=== PATIENT | male | born 1950 | race Caucasian/White ===

== ENCOUNTER → 2017-04-24 | Outpatient (CLI) | payer MEDICARE, OTHER ==
[~2017-04-24] MED LIST: ACYC800T57 PO; AMPI250C11 PO; CATHETER FLUSH 10 ML SYR IV PRN; PRD20T PO; SULF1TAB38 PO
[2017-04-24 07:36] LABS: BASOPHILS % (AUTO) 0 % (0-10); EOSINOPHILS # (AUTO) 0.1 10^3/uL (0.0-0.3); EOSINOPHILS % (AUTO) 1 % (0-10); LYMPHOCYTES % (AUTO) 46 % (12-44); MEAN CORPUSCULAR HEMOGLOBIN 31 PG (25-34); MEAN CORPUSCULAR HGB CONC 33 G/DL (32-36); MEAN CORPUSCULAR VOLUME 92 FL (80-99); MEAN PLATELET VOLUME 9.3 FL (7.4-10.4); MONOCYTES # (AUTO) 0.9 X 10^3 (0.0-1.0); MONOCYTES % (AUTO) 10 % (0-12); NEUTROPHILS # (AUTO) 3.7 X 10^3 (1.8-7.8); NEUTROPHILS % (AUTO) 42 % (42-75); PLATELET COUNT 274 10^3/uL (130-400); RED BLOOD COUNT 4.98 10^6/uL (4.35-5.85); RED CELL DISTRIBUTION WIDTH 12.9 % (10.0-14.5); WHITE BLOOD COUNT 8.7 10^3/uL (4.3-11.0)
[2017-04-24 07:54] LABS: ANION GAP 9 MMOL/L (5-14); BLOOD UREA NITROGEN 13 MG/DL (7-18); BUN/CREATININE RATIO 14; CALCIUM 9.2 MG/DL (8.5-10.1); CARBON DIOXIDE 27 MMOL/L (21-32); CHLORIDE 104 MMOL/L (98-107); CHOLESTEROL 133 MG/DL (< 200); CREATININE SERUM 0.91 MG/DL (0.60-1.30); DIRECT LDL 75 MG/DL (1-129); GFR ESTIMATED > 60; GLUCOSE 102 MG/DL (70-105); MAGNESIUM 2.1 MG/DL (1.8-2.4); POTASSIUM 3.9 MMOL/L (3.6-5.0); SODIUM 140 MMOL/L (135-145); TRIGLYCERIDES 62 MG/DL (<150); VLDL CHOLESTEROL 12 MG/DL (5-40)
[2017-04-24 09:20] VITALS: BP 153/65
[2017-04-24 09:29] VITALS: BP 195/73
[2017-04-24 09:32] VITALS: BP 168/67
--- NOTE | 2017-04-26 17:33 | STRESS TEST ---
DATE OF SERVICE: 04/24/2017 Resting and post-exercise technetium-99M Tetrofosmin SPECT CT imaging ORDERING PHYSICIAN: Dr. Roberts PRIMARY CARE PHYSICIAN: Dr. Saini. CLINICAL DIAGNOSES: Coronary artery disease. Baseline images were carried out after injection of 10.97 mCi of technetium-99M Tetrofosmin. Subsequently exercise was carried out on a treadmill. Nain protocol was employed. Heart rate response to exercise was normal. However, there appeared to be a relatively brief episode of paroxysmal atrial fibrillation with exercise which then returned to sinus rhythm in the recovery phase. Also there were isolated premature ventricular contractions throughout the study. There were four beat runs of wide complex tachycardia during atrial fibrillation. The test was stopped on account of fatigue. The patient had attained Blood pressure response to exercise was hypertensive. Test was stopped on of fatigue. CLINICAL DIAGNOSIS: Review of images at rest and following stress indicate a small transient basal inferior perfusion defect. Gated images show normal global left ventricular systolic function with normal regional wall motion. Left ventricular ejection fraction is calculated to be 54%. Left ventricular end diastolic volume is 115 mL. TID is absent (0.94). CONCLUSIONS: 1. The study is indicative of a small to moderate basal inferior ischemia. 2. Paroxysmal atrial fibrillation during exercise. 3. Brief runs of nonsustained wide complex tachycardia of up to 4 beats in length during atrial fibrillation. 4. Normal global left ventricular systolic function with ejection fraction of 54%. Job ID: [id number] DocumentID: [id number] Dictated Date: 04/25/2017 09:00:45 Detail Technician Date: 04/25/2017 14:02:20 Dictated By: JUAREZ ROBERTS MD, MA, FACP, FACC,
== END ==
LOC: CARD 07:21
PROVIDERS: ATTEND Internal Medicine Cardiovascular Disease
DX: I25.10 Atherosclerotic heart disease of native coronary artery without angina pectoris (principal); I25.5 Ischemic cardiomyopathy; I65.23 Occlusion and stenosis of bilateral carotid arteries; I10 Essential (primary) hypertension; Z86.2 Personal history of diseases of the blood and blood-forming organs and certain disorders involving the immune mechanism
CPT/HCPCS: 36415; 78452; 80048; 80061; 83735; 85025; 93017

== ENCOUNTER 2017-09-12 05:35 | Outpatient (CLI) | payer MEDICARE, OTHER ==
[~2017-09-12] VITALS: Ht 182.9 cm; Wt 94.3 kg
[~2017-09-12 05:35] MED LIST changes: -CATHETER FLUSH 10 ML SYR IV PRN
[2017-09-12] MEDS ORDERED: ATOR40TA PO (15:27)
[2017-09-12] MEDS ORDERED: ASPI-586 PO (15:27)
[2017-09-12] MEDS ORDERED: CLOP75TA28 PO (15:27)
[2017-09-12] MEDS ORDERED: SUCR1TAB PO (15:27)
[2017-09-12] MEDS ORDERED: PANT40TA3 PO (15:27)
[2017-09-12] MEDS ORDERED: AMLO10TA2 PO (15:27)
== END 2017-09-12 15:29 ==
LOC: PREOP 05:35
PROVIDERS: ATTEND Surgery
DX: Z01.818 Encounter for other preprocedural examination (principal); R13.10 Dysphagia, unspecified

== ENCOUNTER → 2017-09-17 | Outpatient (CLI) | payer MEDICARE, OTHER ==
[~2017-09-17] MED LIST changes: +AMLO10TA2 PO; +ASPI-586 PO; +ATOR40TA PO; +CLOP75TA28 PO; +IOHEXOL 350 MG/ML 100 ML (OMNIPAQUE 350) VIAL IV ONE; +NS 250 ML (IVPB) BAG IV ONE; +PANT40TA3 PO; +RECEIVED CONTRAST (Hold Metformin) IV SCH; +SUCR1TAB PO
--- NOTE | 2017-09-17 17:02 | Diagnostic Imaging Report ---
PROCEDURE: CT chest and abdomen with and without contrast TECHNIQUE: Multiple axial CT images through the thorax and abdomen were obtained with and without intravenous contrast. INDICATION: Esophageal mass seen on EGD. COMPARISON: None available. CT CHEST FINDINGS: No supraclavicular or axillary lymphadenopathy. The thyroid is normal. No mediastinal, hilar or juxtaphrenic lymphadenopathy. The heart is mildly enlarged and status post CABG. There is circumferential wall thickening of the distal one third of the esophagus at the level of the GE junction. No pleural effusion or pneumothorax. No endoluminal nodule in the trachea. There is a subpleural rectangular 6 mm nodule in the right upper lobe. No additional pulmonary nodules. No pulmonary mass or consolidation. No concerning focal osseous lesions. Median sternotomy. IMPRESSION: 1. Abnormal circumferential wall thickening of the distal esophagus at the GE junction should correspond to patient's reported esophageal mass. 2. No mediastinal lymphadenopathy or evidence of metastases in the chest. 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 No additional hepatic lesions. The gallbladder and bile ducts are normal. The spleen, pancreas and adrenals are normal. Kidneys enhance normally without mass lesion or obstruction. Distal esophageal thickening extends to the GE junction. Remainder of the stomach does not have wall thickening. No dilated loops of small bowel. No pericolonic inflammatory changes. Appendix is normal. No abdominal lymphadenopathy. No concerning focal osseous lesions. IMPRESSION: 1. No evidence of metastatic disease in the abdomen. Dictated by: Dictated on workstation # [id number]
== END ==
LOC: RAD 14:32
PROVIDERS: ATTEND Surgery
DX: K22.8 Other specified diseases of esophagus (principal)
CPT/HCPCS: 71270; 74170

== ENCOUNTER → 2017-09-30 | Outpatient (CLI) | payer MEDICARE, OTHER ==
[~2017-09-30] MED LIST changes: -IOHEXOL 350 MG/ML 100 ML (OMNIPAQUE 350) VIAL IV ONE; -NS 250 ML (IVPB) BAG IV ONE; -RECEIVED CONTRAST (Hold Metformin) IV SCH
--- NOTE | 2017-09-30 13:29 | Diagnostic Imaging Report ---
INDICATION: Esophageal carcinoma. TECHNIQUE: Patient blood glucose level at the time of injection is 92 mg/dL. The patient was administered 12.1 mCi of F-18 FDG intravenously, administered in the right antecubital vein. PET imaging was performed from the top of the skull to the mid thighs. In addition, noncontrast CT imaging was performed for anatomic correlation and attenuation correction. COMPARISON: No prior PET/CT studies are available for comparison. Comparison is made with recent conventional CT performed on 09/17/2017. FINDINGS: There is symmetric uptake of activity throughout the brain. There are several foci of hypermetabolism involving bilateral mandibular and maxillary regions, perhaps owing to odontogenic disease. Soft tissues of the neck are unremarkable. Intense uptake is identified in the region of the distal esophagus and GE junction, corresponding with the CT abnormality. SUV max is approximately 14. No periesophageal hypermetabolism is seen. The remainder of the mediastinum and luciana are unremarkable. No pulmonary parenchymal hypermetabolism is identified. Physiologic activity within the liver and spleen is seen. There is physiologic activity within bilateral kidneys and urinary tracts. No retroperitoneal or mesenteric lymphadenopathy or hypermetabolism is seen. The pelvis is unremarkable. Physiologic activity within the urinary bladder is noted. IMPRESSION: Intense hypermetabolism in the distal esophagus extending into the GE junction and gastric cardia region, consistent with esophageal neoplasm. No definite findings to suggest metastatic disease are identified. Dictated by: Dictated on workstation # [id number]
== END ==
LOC: RAD 09:00
PROVIDERS: ATTEND Internal Medicine Hematology & Oncology
DX: C15.9 Malignant neoplasm of esophagus, unspecified (principal)

== ENCOUNTER 2017-10-15 05:34 | Outpatient (CLI) | payer MEDICARE, OTHER ==
[~2017-10-15] VITALS: Ht 180.3 cm; Wt 91.6 kg
== END 2017-10-15 11:01 ==
LOC: PREOP 05:34
PROVIDERS: ATTEND Surgery
DX: Z01.818 Encounter for other preprocedural examination (principal); C15.9 Malignant neoplasm of esophagus, unspecified

== ENCOUNTER → 2017-10-16 | Day surgery (SDC) | payer MEDICARE, OTHER ==
[~2017-10-16] VITALS: Ht 180.3 cm; Wt 91.6 kg
[~2017-10-16] MED LIST changes: +ACETAMINOPHEN 325 MG TABLET/CAPLET (TYLENOL) PO PRN; +CATHETER FLUSH 10 ML SYR IV PRN; +HYDROcodone/APAP 5 MG/325 MG (LORTAB) TAB PO ONE; +LACTATED RINGERS 1,000 ML IV PRN; +ONDANSETRON 4 MG/2 ML (SDV) Z0FRAN IVP PRN; +ceFAZolin 1 GM/NS 100 ML IVPB IV ONE; +ceFAZolin INJECTION 1,000 MG in NS (IVPB) 100 ML IV ONE; +morphine INJ 10 MG/ML 1ML (SYR OR VIAL) IVP PRN
--- OUTSIDE RECORDS SUMMARY | 2017-10-16 10:13 | XMS REPORT | Continuity of Care Document ---
Author Author [facility] Organization [facility] Address Unknown Phone Unavailable Care Team Providers Care Transportation Clerk Name Role Phone [employer] Unavailable Unavailable Problems Medications Allergies, Adverse Reactions, Alerts Immunizations Results Vital Signs Encounters Location Location Details Encounter Type Encounter Number Reason For Visit Attending Provider ADM Date DC Date Status Source [place] SERIES [id number] MUNIR DOUGLAS 10/15/[address] [facility] O MUNIR ENG 12/17/[address] [facility] Procedures Plan of Care Social History Assessment and Plan Family History Advance Directives Functional Status
--- OUTSIDE RECORDS SUMMARY | 2017-10-16 10:14 | XMS REPORT | Clinical Summary ---
Author Author [facility] Organization [facility] Address Unknown Phone Unavailable Care Team Providers Care Marine Structural Welder Name Role Phone Rodolfo Alvarado MD Unavailable Unavailable Sanam Roberts MD Unavailable Ramsey Reynolds MD PCP Rodolfo Alvarado MD 21 Unavailable Source Comments Some departments are not documenting in the electronic medical record. If you do not see the information that you expected, contact Release of Information in the Health Information Management department at [phone] for further assistance in locating additional records.[facility] Allergies Active Allergy Reactions Severity Noted Date Comments Meperidine UNKNOWN Low 10/15/2017 Current Medications Prescription Sig. Disp. Refills Start End Date Status Date amLODIPine (NORVASC) 10 09/02/19 Active mg tablet 18 atorvastatin (LIPITOR) 40 09/02/19 Active mg tablet 18 clopiDOGrel (PLAVIX) 75 09/02/19 Active mg tablet [address] 09/10/19 Active (PROTONIX) 40 mg tablet 18 ASPIRIN PO Take 81 mg by mouth. Active Active Problems Not on file Encounters Date Type Specialty Care Team Description 10/15/2017 Office Visit Oncology Chan Carranza MD 10/13/2017 Ancillary Radiology Outpatient, Radiologist Diagnosis unknown Orders 10/10/2017 Telephone Oncology Chan Carranza MD Navigation Assessment 09/30/2017 Hospital Radiology Encounter 09/17/2017 Hospital Radiology Encounter from Last 3 Months Family History Medical History Relation Name Comments Unknown to Patient Brother Unknown to Patient Father Unknown to Patient Maternal Aunt Unknown to Patient Maternal Grandfather Unknown to Patient Maternal Grandmother Unknown to Patient Maternal Uncle Unknown to Patient Mother Unknown to Patient Other Unknown to Patient Paternal Aunt Unknown to Patient Paternal Grandfather Unknown to Patient Paternal Grandmother Unknown to Patient Paternal Uncle Unknown to Patient Sister Relation Name Status Comments Brother Father Maternal Aunt Maternal Grandfather Maternal Grandmother Maternal Uncle Mother Other Paternal Aunt Paternal Grandfather Paternal Grandmother Paternal Uncle Sister Social History Tobacco Use Types Packs/Day Years Used Date Former Smoker Cigarettes 2 15 Quit: 10/03/1983 Smokeless Tobacco: Never Used Alcohol Use Drinks/Week oz/Week Comments No Sex Assigned at Date Recorded Not on file Last Filed Vital Signs Vital Sign Reading Time Taken Blood Pressure 125/74 10/15/2017 3:14 PM CDT Pulse 56 10/15/2017 3:14 PM CDT Temperature 36.9 C (98.4 F) 10/15/2017 3:14 PM CDT Respiratory Rate 14 10/15/2017 3:14 PM CDT Oxygen Saturation - - Inhaled Oxygen - - Concentration Weight 91.9 kg (202 lb 9.6 oz) 10/15/2017 3:14 PM CDT Height - - Body Mass Index - - Plan of Treatment Health Maintenance Due Date Last Done Comments HEPATITIS C SCREENING 1950 PHYSICAL (COMPREHENSIVE) 1957 EXAM PERTUSSIS VACCINE 1961 TETANUS VACCINE 10/31/1967 COLORECTAL CANCER 2000 SCREENING SHINGLES VACCINE 2010 ABDOMINAL AORTIC ANEURYSM 10/31/2015 SCREENING PREVNAR/PNEUMOVAX (#1) 10/31/2015 INFLUENZA VACCINE 05/04/2018 Results * NM PET/CT EXTERNAL IMAGING (09/30/2017) Narrative This order has been auto finalized and does not contain a result. * CT CHEST EXTERNAL IMAGING (09/17/2017) Narrative This order has been auto finalized and does not contain a result. from Last 3 Months
--- OUTSIDE RECORDS SUMMARY | 2017-10-16 10:14 | XMS REPORT | Encounter Summary ---
Author Author [facility] Organization [facility] Address Unknown Phone Unavailable Care Team Providers Care Acoustical Logging Engineer Name Role Phone PCP Unavailable Encounter Details Date Type Department Care Team Description 09/30/2017 Hospital [facility] Hospital Radiology [address] [place] [address] Social History Tobacco Use Types Packs/Day Years Used Date Never Assessed Sex Assigned at Date Recorded Not on file as of this encounter Medications at Time of Discharge Medication Sig. Disp. Refills Start Date End Date amLODIPine (NORVASC) 10 09/02/2017 mg tablet atorvastatin (LIPITOR) 40 09/02/2017 mg tablet clopiDOGrel (PLAVIX) 75 09/02/[address] 09/10/2017 (PROTONIX) 40 mg tablet as of this encounter Plan of Treatment Not on fileas of this encounter Results * NM PET/CT EXTERNAL IMAGING (09/30/2017) Narrative This order has been auto finalized and does not contain a result. in this encounter Visit Diagnoses Diagnosis Diagnosis unknown Other unknown and unspecified cause of morbidity or mortality
--- OUTSIDE RECORDS SUMMARY | 2017-10-16 10:14 | XMS REPORT | Encounter Summary ---
Author Author [facility] Organization [facility] Address Unknown Phone Unavailable Care Team Providers Care Hospice Executive Director Name Role Phone Rodolfo Alvarado MD Unavailable Unavailable Sanam Roberts MD Unavailable Ramsey Reynolds MD PCP Rodolfo Alvarado MD 21 Unavailable Reason for Visit * Reason Comments Navigation Assessment Encounter Details Date Type Department Care Team Description 10/10/2017 Telephone [facility] Chan Carranza MD Navigation Assessment [facility] - Exam [address] [place] [address] [place] [address] [phone] Social History Tobacco Use Types Packs/Day Years Used Date Never Assessed Sex Assigned at Date Recorded Not on file as of this encounter Miscellaneous Notes * Telephone Encounter - Caron Mars RN - 10/10/2017 8:13 AM SUPERVISOR QUALITY CONTROL Formatting of this note may be different from the original. Navigation Intake Assessment Document Patient Name: Ever Johns : 1950 Insurance: Medicare Appointment Info: Future Appointments Date Time Provider Department Center 10/15/2017 3:20 PM Chan Carranza MD [facility] Exam Diagnosis & Reason for Visit: Esophogeal cancer. CABG 4 years ago at [facility] Physician Info: Referring Physician: Dr. Alvarado Medical Oncology Contact Name & Number: [phone] [facility] Radiation Oncologist: Dr Cruz - initial consult planned for 10/10 Other: Dr Price Career Development Coordinator/Teacher [phone] Location of Films: PACS Location of Pathology: [facility] lab. Specimen not requested History of Present Illness: Around June 2017 began having problems swallowing. 09/17/2017 EGD- poorly diff adeno ca consistent with esophageal /gastric cancer Her 2 negatvie 09/17/2017 CT C/A 09/30/2017 PET Intense hypermetabolism in the distal esophagus extending into the GE junctiuon and gastric cardia region. 10/03/2017 EGD/EUS- T3N2 Patient is having feeding tube placed on 10/14 NEEDS Assessment: Genetic Counseling: Not Applicable Nutrition: Scheduled to see awning assembler at referring providers office. Have you recently lost weight without trying?: Yes If yes, how much weight have you lost?: 50 # Weight Loss Score: 4 2-13lb=1 14-23 lb=2 24-33 lb=3 34lb=4 Unsure=2 Have you been eating poorly because of a decreased appetite?: yes Appetite Score: 1 No=0 Yes=1 MST Score: 5 (Add weight loss and appetite scores) MST score of 2 or more=At Risk Social Work/Financial: No need identified Spiritual & Emotional: Emotional support provided Physical: No needs identified Communication: No needs identified Oncofertility - Females age 40 and under; Males age 50 and under : Not applicable in this encounter Plan of Treatment Not on fileas of this encounter Visit Diagnoses Not on filein this encounter
--- OUTSIDE RECORDS SUMMARY | 2017-10-16 10:14 | XMS REPORT | Encounter Summary ---
Author Author [facility] Organization [facility] Address Unknown Phone Unavailable Care Team Providers Care Drop Wire Aliner Name Role Phone Rodolfo Alvarado MD Unavailable Unavailable Sanam Roberts MD Unavailable Ramsey Reynolds MD PCP Rodolfo Alvarado MD 21 Unavailable Encounter Details Date Type Department Care Team Description 10/13/2017 Ancillary Rad Outpatient, Radiologist Diagnosis unknown Orders [address] [place] [address] Social History Tobacco Use Types Packs/Day Years Used Date Never Assessed Sex Assigned at Date Recorded Not on file as of this encounter Plan of Treatment [...]
--- OUTSIDE RECORDS SUMMARY | 2017-10-16 10:14 | XMS REPORT | Continuity of Care Document ---
Author Author [facility] Organization [facility] Address Unknown Phone Unavailable Allergies Active Description Code Type Severity Reaction Onset Reported/Identified Relationship to Patient Clinical Status Yes meperidine HCl [id number] Drug Allergy Unknown N/A 10/21/2013 Medications There is no data. 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,INI 10/21/2013 MANUELITO SHERWOOD MD Ot 414.01 CORONARY ATHEROSCLEROSIS OF [place] CORON 10/21/2013 MANUELITO SHERWOOD MD Ot 414.2 CHRONIC TOTAL OCCLUSION OF CORONARY [place]AM[place] 04/02/2016 Ot 278.00 OBESITY, NOS 04/02/2016 Ot 401.9 HYPERTENSION NOS 04/02/2016 Ot 414.00 CORON ATHEROSCLER NOS TYPE VESSEL, NATIV 04/02/2016 Ot 414.8 CHR ISCHEMIC HRT DIS NEC 04/02/2016 Ot V12.29 PERSONAL HX OF [facility] ENDOCRINE, METABOLIC 04/03/2016 SANDY MCKEE HEAD OF SALES PROMOTION Ot E78.5 HYPERLIPIDEMIA, UNSPECIFIED 04/03/2016 SANDY MCKEE HEAD OF SALES PROMOTION Ot I25.10 ATHSCL HEART DISEASE OF [place] CORONARY 04/24/2016 SANDY MCKEE HEAD OF SALES PROMOTION Ot E78.5 HYPERLIPIDEMIA, UNSPECIFIED 04/24/2016 SANDY MCKEE HEAD OF SALES PROMOTION Ot I25.10 ATHSCL HEART DISEASE OF [place] CORONARY 04/24/2017 Ot 278.00 OBESITY, NOS 04/24/2017 Ot 401.9 HYPERTENSION NOS 04/24/2017 Ot 414.00 CORON ATHEROSCLER NOS TYPE VESSEL, NATIV 04/24/2017 Ot 414.8 CHR ISCHEMIC HRT DIS NEC 04/24/2017 Ot V12.29 PERSONAL HX OF OTH ENDOCRINE, METABOLIC 04/24/2017 SANDY MCKEE HEAD OF SALES PROMOTION Ot E78.5 HYPERLIPIDEMIA, UNSPECIFIED 04/24/2017 SANDY MCKEE HEAD OF SALES PROMOTION Ot I25.10 ATHSCL HEART DISEASE OF [place] CORONARY 04/30/2017 VITO HUNTER FACC, ALI FACP CCDS Ot I10 ESSENTIAL (PRIMARY) HYPERTENSION 04/30/2017 VITO HUNTER FACC, ALI FACP CCDS Ot I25.10 ATHSCL HEART DISEASE OF [place] CORONARY 04/30/2017 VITO HUNTER FACC, ALI FACP CCDS Ot I25.5 ISCHEMIC CARDIOMYOPATHY 04/30/2017 VITO HUNTER FACC, ALI FACP CCDS Ot I65.23 OCCLUSION AND STENOSIS OF [place] 04/30/2017 VITO HUNTER FACC, ALI FACP CCDS Ot Z86.2 PRSNL HISTORY OF DIS OF THE BLD/BLD-FORM 05/15/2017 VITO HUNTER FACC, ALI FACP CCDS Ot I10 ESSENTIAL (PRIMARY) HYPERTENSION 05/15/2017 VITO HUNTER FACC, ALI FACP CCDS Ot I25.10 ATHSCL HEART DISEASE OF [place] CORONARY 05/15/2017 VITO HUNTER FACC, ALI FACP CCDS Ot I25.5 ISCHEMIC CARDIOMYOPATHY 05/15/2017 VITO HUNTER FACC, ALI FACP CCDS Ot I65.23 OCCLUSION AND STENOSIS OF [place] 05/15/2017 VITO HUNTER FACC, ALI FACP CCDS Ot Z86.2 PRSNL HISTORY OF DIS OF THE BLD/BLD-FORM 09/12/2017 EMILY TUTTLE MD Ot R13.10 DYSPHAGIA, UNSPECIFIED 09/12/2017 EMILY TUTTLE MD Ot Z01.818 ENCOUNTER FOR OTHER PREPROCEDURAL EXAMIN 09/16/2017 Ot 278.00 OBESITY, NOS 09/16/2017 Ot 401.9 HYPERTENSION NOS 09/16/2017 Ot 414.00 CORON ATHEROSCLER NOS TYPE VESSEL, NATIV 09/16/2017 Ot 414.8 CHR ISCHEMIC HRT DIS NEC 09/16/2017 Ot V12.29 PERSONAL HX OF OTH ENDOCRINE, METABOLIC 09/16/2017 SANDY MCKEE HEAD OF SALES PROMOTION Ot E78.5 HYPERLIPIDEMIA, UNSPECIFIED 09/16/2017 SANDY MCKEE Ot I25.10 ATHSCL HEART DISEASE OF [place] CORONARY 09/16/2017 VITO HUNTER FACC, ALI FACP CCDS Ot I10 ESSENTIAL (PRIMARY) HYPERTENSION 09/16/2017 VITO HUNTER FACC, ALI FACP CCDS Ot I25.10 ATHSCL HEART DISEASE OF [place] CORONARY 09/16/2017 VITO HUNTER FACC, ALI FACP CCDS Ot I25.5 ISCHEMIC CARDIOMYOPATHY 09/16/2017 VITO HUNTER FACC, ALI FACP CCDS Ot I65.23 OCCLUSION AND STENOSIS OF [place] 09/16/2017 VITO HUNTER FACC, ALI FACP CCDS Ot Z86.2 PRSNL HISTORY OF DIS OF THE BLD/BLD-FORM 09/16/2017 EMILY TUTTLE MD Ot R13.10 DYSPHAGIA, UNSPECIFIED 09/16/2017 EMILY TUTTLE MD Ot Z01.818 ENCOUNTER FOR OTHER PREPROCEDURAL EXAMIN 09/17/2017 Ot 278.00 OBESITY, NOS 09/17/2017 Ot 401.9 HYPERTENSION NOS 09/17/2017 Ot 414.00 CORON ATHEROSCLER NOS TYPE VESSEL, NATIV 09/17/2017 Ot 414.8 CHR ISCHEMIC HRT DIS NEC 09/17/2017 Ot V12.29 PERSONAL HX OF OTH ENDOCRINE, METABOLIC 09/17/2017 SANDY MCKEE Ot E78.5 HYPERLIPIDEMIA, UNSPECIFIED 09/17/2017 SANDY MCKEE HEAD OF SALES PROMOTION Ot I25.10 ATHSCL HEART DISEASE OF [place] CORONARY 09/17/2017 VITO HUNTER FACC, JUAREZ FACP CCDS Ot I10 ESSENTIAL (PRIMARY) HYPERTENSION 09/17/2017 VITO HUNTER FACC, ALI FACP CCDS Ot I25.10 ATHSCL HEART DISEASE OF [place] CORONARY 09/17/2017 VITO HUNTER FACC, ALI FACP CCDS Ot I25.5 ISCHEMIC CARDIOMYOPATHY 09/17/2017 VITO HUNTER FACC, ALI FACP CCDS Ot I65.23 OCCLUSION AND STENOSIS OF [place] 09/17/2017 VITO HUNTER FACC, ALI FACP CCDS Ot Z86.2 PRSNL HISTORY OF DIS OF THE BLD/BLD-FORM 09/17/2017 EMILY TUTTLE MD Ot C15.3 MALIGNANT NEOPLASM OF UPPER THIRD OF ESO 09/17/2017 EMILY TUTTLE MD Ot E78.00 PURE HYPERCHOLESTEROLEMIA, UNSPECIFIED 09/17/2017 EMILY TUTTLE MD Ot I10 ESSENTIAL (PRIMARY) HYPERTENSION 09/17/2017 EMILY TUTTLE MD Ot I25.10 ATHSCL HEART DISEASE OF [place] CORONARY 09/17/2017 EMILY TUTTLE MD Ot I25.2 OLD MYOCARDIAL INFARCTION 09/17/2017 EMILY TUTTLE MD Ot K29.70 GASTRITIS, UNSPECIFIED, WITHOUT BLEEDING 09/17/2017 EMILY TUTTLE MD Ot Z79.82 [facility] (CURRENT) USE OF ASPIRIN 09/17/2017 EMILY TUTTLE MD Ot Z79.899 OTHER CLINICAL DOCUMENTATION SPECIALIST (CURRENT) DRUG THERAPY 09/17/2017 EMILY TUTTLE MD Ot Z87.891 PERSONAL HISTORY OF NICOTINE DEPENDENCE 09/17/2017 EMILY TUTTLE MD Ot Z88.5 ALLERGY STATUS TO NARCOTIC AGENT STATUS 09/17/2017 EMILY TUTTLE MD Ot Z95.1 PRESENCE OF AORTOCORONARY BYPASS GRAFT 09/17/2017 EMILY TUTTLE MD Ot Z95.5 PRESENCE OF CORONARY ANGIOPLASTY IMPLANT 09/23/2017 EMILY TUTTLE MD Ot C15.3 MALIGNANT NEOPLASM OF UPPER THIRD OF ESO 09/23/2017 EMILY TUTTLE MD Ot E78.00 PURE HYPERCHOLESTEROLEMIA, UNSPECIFIED 09/23/2017 EMILY TUTTLE MD Ot I10 ESSENTIAL (PRIMARY) HYPERTENSION 09/23/2017 EMILY TUTTLE MD Ot I25.10 ATHSCL HEART DISEASE OF [place] CORONARY 09/23/2017 EMILY TUTTLE MD Ot I25.2 OLD MYOCARDIAL INFARCTION 09/23/2017 EMILY TUTTLE MD Ot K29.70 GASTRITIS, UNSPECIFIED, WITHOUT BLEEDING 09/23/2017 EMILY TUTTLE MD Ot Z79.82 CLINICAL DOCUMENTATION SPECIALIST (CURRENT) USE OF ASPIRIN 09/23/2017 EMILY TUTTLE MD Ot Z79.899 OTHER CLINICAL DOCUMENTATION SPECIALIST (CURRENT) DRUG THERAPY 09/23/2017 EMILY TUTTLE MD Ot Z87.891 PERSONAL HISTORY OF NICOTINE DEPENDENCE 09/23/2017 EMILY TUTTLE MD Ot Z88.5 ALLERGY STATUS TO NARCOTIC AGENT STATUS 09/23/2017 EMILY TUTTLE MD Ot Z95.1 PRESENCE OF AORTOCORONARY BYPASS GRAFT 09/23/2017 EMILY TUTTLE MD Ot Z95.5 PRESENCE OF CORONARY ANGIOPLASTY IMPLANT 10/01/2017 MERCEDES BIANCHI MD Ot 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, UNSPECI 10/09/2017 MERCEDES BIANCHI MD Ot 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 10/09/2017 MERCEDES BIANCHI MD Ot E78.5 HYPERLIPIDEMIA, UNSPECIFIED 10/09/2017 MERCEDES BIANCHI MD Ot I10 ESSENTIAL (PRIMARY) HYPERTENSION 10/09/2017 MERCEDES BIANCHI MD Ot I25.10 ATHSCL HEART DISEASE OF [place] CORONARY 10/09/2017 MERCEDES BIANCHI MD Ot I25.5 ISCHEMIC CARDIOMYOPATHY 10/09/2017 MERCEDES BIANCHI MD Ot I48.0 PAROXYSMAL ATRIAL FIBRILLATION 10/09/2017 MERCEDES BIANCHI MD Ot Z79.82 CLINICAL DOCUMENTATION SPECIALIST (CURRENT) USE OF ASPIRIN 10/09/2017 MERCEDES BIANCHI MD Ot Z79.899 OTHER [facility] (CURRENT) DRUG THERAPY 10/09/2017 MERCEDES BIANCHI MD Ot Z95.1 PRESENCE OF AORTOCORONARY BYPASS GRAFT 10/16/2017 EMILY TUTTLE MD Ot C15.3 MALIGNANT NEOPLASM OF UPPER THIRD OF ESO 10/16/2017 EMILY TUTTLE MD Ot E78.00 PURE HYPERCHOLESTEROLEMIA, UNSPECIFIED 10/16/2017 EMILY TUTTLE MD Ot I10 ESSENTIAL (PRIMARY) HYPERTENSION 10/16/2017 EMILY TUTTLE MD Ot I25.10 ATHSCL HEART DISEASE OF [place] CORONARY 10/16/2017 EMILY TUTTLE MD Ot I25.2 OLD MYOCARDIAL INFARCTION 10/16/2017 EMILY TUTTLE MD Ot K29.70 GASTRITIS, UNSPECIFIED, WITHOUT BLEEDING 10/16/2017 EMILY TUTTLE MD Ot Z79.82 CLINICAL DOCUMENTATION SPECIALIST (CURRENT) USE OF ASPIRIN 10/16/2017 EMILY TUTTLE MD Ot Z79.899 OTHER CLINICAL DOCUMENTATION SPECIALIST (CURRENT) DRUG THERAPY 10/16/2017 EMILY TUTTLE MD, Ot Z87.891 PERSONAL HISTORY OF NICOTINE DEPENDENCE 10/16/2017 EMILY TUTTLE MD, Ot Z88.5 ALLERGY STATUS TO NARCOTIC AGENT STATUS 10/16/2017 EMILY TUTTLE MD Ot Z95.1 PRESENCE OF AORTOCORONARY BYPASS GRAFT 10/16/2017 EMILY TUTTLE MD Ot Z95.5 PRESENCE OF CORONARY ANGIOPLASTY IMPLANT Procedures There is no data. Results Test Result Range Complete blood count (CBC) with automated white blood cell (WBC) differential - 04/24/17 07:31 Blood leukocytes automated count (number/volume) 8.7 10*3/uL 4.3-11.0 Blood erythrocytes automated count (number/volume) 4.98 10*6/uL 4.35-5.85 Venous blood hemoglobin measurement (mass/volume) 15.2 g/dL 13.3-17.7 Blood hematocrit (volume fraction) 46 % 40-54 Automated erythrocyte mean corpuscular volume 92 [foz_us] 80-99 Automated erythrocyte mean corpuscular hemoglobin (mass per erythrocyte) 31 pg 25-34 Automated erythrocyte mean corpuscular hemoglobin concentration measurement ( mass/volume) 33 g/dL 32-36 Automated erythrocyte distribution width ratio 12.9 % 10.0-14.5 Automated blood platelet count (count/volume) 274 10*3/uL 130-400 Automated blood platelet mean volume measurement 9.3 [foz_us] 7.4-10.4 Automated blood neutrophils/100 leukocytes 42 % 42-75 Automated blood lymphocytes/100 leukocytes 46 % 12-44 Blood monocytes/100 leukocytes 10 % 0-12 Automated blood eosinophils/100 leukocytes 1 % 0-10 Automated blood basophils/100 leukocytes 0 % 0-10 Blood neutrophils automated count (number/volume) 3.7 10*3 1.8-7.8 Blood lymphocytes automated count (number/volume) 4.0 10*3 1.0-4.0 Blood monocytes automated count (number/volume) 0.9 10*3 0.0-1.0 Automated eosinophil count 0.1 10*3/uL 0.0-0.3 Automated blood basophil count (count/volume) 0.0 10*3/uL 0.0-0.1 Whole blood basic metabolic panel - 04/24/17 07:31 Serum or plasma sodium measurement (moles/volume) 140 mmol/L 135-145 Serum or plasma potassium measurement (moles/volume) 3.9 mmol/L 3.6-5.0 Serum or plasma chloride measurement (moles/volume) 104 mmol/L 98-107 Carbon dioxide 27 mmol/L 21-32 Serum or plasma anion gap determination (moles/volume) 9 mmol/L 5-14 Serum or plasma urea nitrogen measurement (mass/volume) 13 mg/dL 7-18 Serum or plasma creatinine measurement (mass/volume) 0.91 mg/dL 0.60-1.30 Serum or plasma urea nitrogen/creatinine mass ratio 14 NRG Serum or plasma creatinine measurement with calculation of estimated glomerular filtration rate > NRG Serum or plasma glucose measurement (mass/volume) 102 mg/dL 70-105 Serum or plasma calcium measurement (mass/volume) 9.2 mg/dL 8.5-10.1 Magnesium - 04/24/17 07:31 Magnesium 2.1 mg/dL 1.8-2.4 Lipid 1996 panel - 04/24/17 07:31 Serum or plasma triglyceride measurement (mass/volume) 62 mg/dL <150 Serum or plasma cholesterol measurement (mass/volume) 133 mg/dL < 200 Serum or plasma cholesterol in HDL measurement (mass/volume) 48 mg/ dL 40-60 Cholesterol in LDL [mass/volume] in serum or plasma by direct assay 75 mg/dL 1-129 Serum or plasma cholesterol in VLDL measurement (mass/volume) 12 mg/ dL 5-40 Serum or plasma urea nitrogen measurement (mass/volume) - 09/17/17 14:50 Serum or plasma urea nitrogen measurement (mass/volume) 25 mg/dL 7-18 Serum or plasma creatinine measurement (mass/volume) - 09/17/17 14:50 Serum or plasma creatinine measurement (mass/volume) 0.72 mg/dL 0.60-1.30 Encounters ACCT No. Visit Date/Time Discharge Status Pt. Type Provider Facility Loc./Unit Complaint [id number] 10/15/2017 05:34:00 10/15/2017 11:01:00 DIS Outpatient EMILY TUTTLE MD [facility] PREOP ESOPHAGEAL CANCER [id number] 09/30/2017 09:00:00 09/30/2017 23:59:59 CLS Outpatient MERCEDES BIANCHI MD [facility] RAD C15.9 ESOPHAGCAL CA [id number] 09/17/2017 14:32:00 09/17/2017 23:59:59 CLS Outpatient EMILY TUTTLE MD [facility] RAD ESOPHAGEAL MASS ON EGD [id number] 09/17/2017 10:20:00 09/17/2017 15:00:00 DIS Outpatient EMILY TUTTLE MD [facility] ENDO DYSPHAGIA [id number] 09/12/2017 05:35:00 09/12/2017 15:29:00 DIS Outpatient EMILY TUTTLE MD [facility] PREOP EGD [id number] 04/24/2017 07:21:00 04/24/2017 23:59:59 CLS Outpatient VITO HUNTER FACCJUAREZ FACP CCDS [facility] CARD CAD I25.10 [id number] 04/02/2016 09:11:00 04/02/2016 23:59:59 CLS Outpatient SANDY MCKEE [facility] LAB CAD,HLD [id number] 01/06/2014 08:35:00 01/06/2014 23:59:59 CLS Outpatient [id number] 10/21/2013 13:26:00 10/21/2013 18:42:00 DIS Outpatient MANUELITO SHERWOOD MD [facility] CATH DIFFICULTY BREATHING [id number] 04/05/2013 09:16:00 04/05/2013 11:36:00 DIS Emergency BLAINE CASTILLO GLASS INSTALLER TECHNICIAN [facility] ER SPIDER BITE [id number] 10/16/2017 10:30:00 PEN Preadmit [facility] [id number] 10/14/2017 14:23:00 ACT Outpatient MERCEDES BIANCHI MD [facility] ONC [id number] 10/04/2014 13:44:00 Document Registration
--- OUTSIDE RECORDS SUMMARY | 2017-10-16 10:14 | XMS REPORT | Encounter Summary ---
Author Author [facility] Organization [facility] Address Unknown Phone Unavailable Care Team Providers Care Syrup Maker Cook Name Role Phone PCP Unavailable Encounter Details Date Type Department Care Team Description 09/17/2017 Hospital [facility] Radiology [address] [place] [address] Social History Tobacco Use Types [...] on fileas of this encounter Results * CT CHEST EXTERNAL IMAGING (09/17/2017) Narrative This order has been auto finalized and does not contain a result. in this encounter Visit Diagnoses Diagnosis Diagnosis unknown Other unknown and unspecified cause of morbidity or mortality
--- OUTSIDE RECORDS SUMMARY | 2017-10-16 10:14 | XMS REPORT | Encounter Summary ---
Author Author [facility] Organization [facility] Address Unknown Phone Unavailable Care Team Providers Care Print Washer Name Role Phone Rodolfo Alvarado MD Unavailable Unavailable Sanam Roberts MD Unavailable Ramsey Reynolds MD PCP Rodolfo Alvarado MD 21 Unavailable Reason for Visit * Reason Comments Heme/Onc Care New Patient * Consult, Test & Treat (Routine) Status Reason Specialty Diagnoses / Referred By Referred To Procedures Contact Contact New Request General Surgery / Diagnoses [place], Oncology jason Giles MD [facility] [address] re/ref from [address] [place] [address] rocedures Phone: NEW PATIENT [phone] Encounter Details Date Type Department Care Team Description 10/15/2017 Office Visit [facility] Chan Carranza MD [facility] [address] [place] [address] [place] [address] [phone] Social History Tobacco Use Types Packs/Day Years Used Date Former Smoker Cigarettes 2 15 Quit: 10/03/1983 Smokeless Tobacco: Never Used Alcohol Use Drinks/Week oz/Week Comments No Sex Assigned at Date Recorded Not on file as of this encounter Last Filed Vital Signs Vital Sign Reading [...] - - Body Mass Index - - in this encounter Plan of Treatment Not on fileas of this encounter Visit Diagnoses Not on filein this encounter
[2017-10-16 11:01] VITALS: BP 150/77
--- NOTE | 2017-10-16 11:32 | Progress Note-Pre Operative ---
Pre-Operative Progress Note H&P Reviewed The H&P was reviewed, patient examined and no changes noted. Date Seen by Provider: Oct 16, 2017 Time Seen by Provider: 11:30 Date H&P Reviewed: Oct 16, 2017 Time H&P Reviewed: :30 Pre-Operative Diagnosis: esophageal ca EMILY TUTTLE MD Oct 16, 2017 11:32 am
[2017-10-16 13:30] VITALS: BP 150/77
--- NOTE | 2017-10-16 14:13 | Anesthesia-General Post-Op ---
General Patient Condition Mental Status/LOC: Same as Preop Cardiovascular: Satisfactory Nausea/Vomiting: Absent Respiratory: Satisfactory Pain: Controlled Complications: Absent Post Op Complications Complications None Follow Up Care/Instructions Patient Instructions None needed. Anesthesia/Patient Condition Patient Condition Patient is doing well, no complaints, stable vital signs, no apparent adverse anesthesia problems. No complications reported per nursing. D/C home per [facility] Criteria: Yes KRISTIE SMITH CRNA Oct 16, 2017 14:13
== END | disposition home or self-care (01) ==
LOC: SDC 10:10
PROVIDERS: ATTEND Surgery
DX: C15.9 Malignant neoplasm of esophagus, unspecified (principal); R13.10 Dysphagia, unspecified; R63.4 Abnormal weight loss; Z53.29 Procedure and treatment not carried out because of patient's decision for other reasons
CPT/HCPCS: 87081

== ENCOUNTER 2017-10-22 07:30 | Day surgery (SDC) | payer MEDICARE, OTHER ==
[~2017-10-22] VITALS: Ht 180.3 cm; Wt 91.6 kg
[2017-10-22 07:30] VITALS: BP 129/75
[~2017-10-22 07:30] MED LIST changes: -ACETAMINOPHEN 325 MG TABLET/CAPLET (TYLENOL) PO PRN; -CATHETER FLUSH 10 ML SYR IV PRN; -HYDROcodone/APAP 5 MG/325 MG (LORTAB) TAB PO ONE; -LACTATED RINGERS 1,000 ML IV PRN; -ONDANSETRON 4 MG/2 ML (SDV) Z0FRAN IVP PRN; -ceFAZolin 1 GM/NS 100 ML IVPB IV ONE; -ceFAZolin INJECTION 1,000 MG in NS (IVPB) 100 ML IV ONE; -morphine INJ 10 MG/ML 1ML (SYR OR VIAL) IVP PRN
[2017-10-22] MEDS ORDERED: HEParin (CENTRAL IV FLUSH) 500 UNIT/5 ML SYR ONE (07:43)
[2017-10-22] MEDS ORDERED: LIDOCAINE/EPI 1%-1:200,000 (XYLOCAINE) 10 ML VIAL ONE (07:43)
--- OUTSIDE RECORDS SUMMARY | 2017-10-22 07:46 | XMS REPORT | Encounter Summary ---
Author Author [facility] Organization [facility] Address Unknown Phone Unavailable Care Team Providers Care Dimension Stone Quarry Supervisor Name Role Phone Rodolfo Alvarado MD Unavailable Unavailable Sanam Roberts MD Unavailable Ramsey Reynolds MD PCP Rodolfo Alvarado MD 21 Unavailable Encounter Details Date Type Department Care Team Description 10/20/2017 Prep for Case [facility] Chan Carranza MD [address] [address] [address] [place] [address] [phone] Social History Tobacco Use Types Packs/Day Years Used Date Former Smoker Cigarettes 2 15 Quit: 10/03/1983 Smokeless Tobacco: Never Used Alcohol Use Drinks/Week oz/Week Comments No Sex Assigned at Date Recorded Not on file as of this encounter Plan of Treatment Not on fileas of this encounter Visit Diagnoses Not on filein this encounter
--- OUTSIDE RECORDS SUMMARY | 2017-10-22 07:46 | XMS REPORT | Encounter Summary ---
Author Author [facility] Organization [facility] Address Unknown Phone Unavailable Care Team Providers Care Predatory Game Hunter Name Role Phone Rodolfo Alvarado MD Unavailable Unavailable Sanam Roberts MD Unavailable Ramsey Reynolds MD PCP Rodolfo Alvarado MD 21 Unavailable Reason for Visit * Reason Comments Heme/Onc Care esophageal cancer New Patient esophageal cancer * Consult, Test & Treat (Routine) Status Reason Specialty Diagnoses / Referred By Referred To Procedures Contact Contact New Request General Surgery / Diagnoses [place], Oncology jason Giles MD [facility] [address] re/ref from [address] [place] [address] rocedures Phone: NEW PATIENT [phone] Encounter Details Date Type Department Care Team Description 10/15/2017 Office Visit [facility] Chan Carranza MD Malignant neoplasm of Cancer Center - [facility] Exam [address] lower third of esophagus [address] [place] [address] [place] [address] [phone] Social History Tobacco Use Types Packs/Day Years [...] Mass Index - - in this encounter Progress Notes * Chan Carranza MD - 10/15/2017 3:20 PM CDT Formatting of this note may be different from the original. Name: Ever Johns : 1950 AGE: 66 y.o. DATE OF SERVICE: 10/15/2017 Subjective: Heme/Onc Care and New Patient Ever Johns is a 66 y.o. male. No matching staging information was found for the patient. History of Present Illness Patient is a 66-year-old male with a recent diagnosis of T3N2 esophageal adenocarcinoma. Patient is a former smoker of 15 years but quit back in 1983. Patient was diagnosed on 09/17/2017 after EGD biopsy. He states that he began having symptoms and problems around June 2017 began to issues swallowing solid foods. He currently tolerates pured/soft diet. Patient states that he lost nearly 40 pounds in 2 months since the symptoms started in early June. Patient has a significant heart history with a CABG 10/22/13. He also has atrial fibrillation for which he does not take blood thinners. He is on aspirin and Plavix. His CT scan of the chest abdomen and pelvis was negative for metastatic disease his PET scan was also negative for metastatic disease. He states he is scheduled for port placement and feeding jejunostomy placement in the next week. Shortly after recovery room that he will begin chemotherapy down in [facility]. He denies nausea, vomiting, fever, chills. He denies shortness of breath or chest pain. His only complaint is his dysphagia Review of Systems Constitutional: Positive for diaphoresis and unexpected weight change. Negative for activity change, appetite change, chills and fever. HENT: Negative. Eyes: Negative. Respiratory: Negative for chest tightness, shortness of breath and wheezing. Cardiovascular: Negative for chest pain and palpitations. Gastrointestinal: Positive for nausea. Negative for abdominal distention, abdominal pain, anal bleeding, blood in stool, constipation, diarrhea, rectal pain and vomiting. Endocrine: Negative. Genitourinary: Negative. Musculoskeletal: Negative. Skin: Negative. Allergic/Immunologic: Negative. Neurological: Negative. Hematological: Negative. Negative for adenopathy. Psychiatric/Behavioral: Negative. The remainder of the complete 12-point comprehensive ROS is otherwise entirely negative. Past Medical History: Diagnosis Date Cancer of esophagus (HCC) Heart disease Hypertension Vision decreased Past Surgical History: Procedure Laterality Date COLONOSCOPY HX HEART CATHETERIZATION Family History Problem Relation Age of Onset Unknown to Patient Mother Unknown to Patient Father Unknown to Patient Sister Unknown to Patient Brother Unknown to Patient Maternal Aunt Unknown to Patient Maternal Uncle Unknown to Patient Paternal Aunt Unknown to Patient Paternal Uncle Unknown to Patient Maternal Grandmother Unknown to Patient Maternal Grandfather Unknown to Patient Paternal Grandmother Unknown to Patient Paternal Grandfather Unknown to Patient Other Social History Social History Marital status: Spouse name: N/A Number of children: N/A Years of education: N/A Social History Main Topics Smoking status: Former Smoker Packs/day: 2.00 Years: 15.00 Types: Cigarettes Quit date: 10/03/1983 Smokeless tobacco: Never Used Alcohol use No Drug use: No Sexual activity: Not on file Other Topics Concern Not on file Social History Narrative No narrative on file Objective: amLODIPine (NORVASC) 10 mg tablet ASPIRIN PO Take 81 mg by mouth. atorvastatin (LIPITOR) 40 mg tablet clopiDOGrel (PLAVIX) [address] (PROTONIX) 40 mg tablet Vitals: 10/15/17 1514 BP: 125/74 Pulse: 56 Resp: 14 Temp: 36.9 C (98.4 F) TempSrc: Oral Weight: 91.9 kg (202 lb 9.6 oz) PF: 100 L/min There is no height or weight on file to calculate BMI. Pain Score: Zero Pain Addressed: N/A Eastern Cooperative Oncology Group performance status is 0, Fully active, able to carry on all pre-disease performance without restriction.. Physical Exam Constitutional: He is oriented to person, place, and time. He appears well- developed and well-nourished. HENT: Head: Normocephalic and atraumatic. Eyes: Conjunctivae and EOM are normal. Pupils are equal, round, and reactive to light. Right eye exhibits no discharge. Left eye exhibits no discharge. No scleral icterus. Neck: Normal range of motion. Neck supple. No JVD present. No tracheal deviation present. No thyromegaly present. Cardiovascular: Normal rate. An irregularly irregular rhythm present. Exam reveals no gallop and no friction rub. Pulmonary/Chest: Effort normal. No stridor. No respiratory distress. Abdominal: Soft. He exhibits no distension and no mass. There is no tenderness. There is no rebound and no guarding. No hernia. Musculoskeletal: Normal range of motion. He exhibits no tenderness. Lymphadenopathy: He has no cervical adenopathy. Neurological: He is alert and oriented to person, place, and time. No cranial nerve deficit. Skin: Skin is warm and dry. Capillary refill takes less than 2 seconds. No erythema. No pallor. Psychiatric: He has a normal mood and affect. His behavior is normal. Judgment and thought content normal. Nursing note and vitals reviewed. Assessment and Plan: Patient is a 66-year-old male with a recent diagnosis of T3N2 esophageal adenocarcinoma. Patient is a former smoker of 15 years but quit back in 1983. Patient was diagnosed on 09/17/2017 after EGD biopsy. He states that he began having symptoms and problems around June 2017 began to issues swallowing solid foods. He currently tolerates pured/soft diet. Patient states that he lost nearly 40 pounds in 2 months since the symptoms started in early June. Patient has a significant heart history with a CABG 10/22/13. He also has atrial fibrillation for which he does not take blood thinners. He is on aspirin and Plavix. His CT scan of the chest abdomen and pelvis was negative for metastatic disease his PET scan was also negative for metastatic disease. He states he is scheduled for port placement and feeding jejunostomy placement in the next week. Shortly after recovery room that he will begin chemotherapy down in [facility]. He denies nausea, vomiting, fever, chills. He denies shortness of breath or chest pain. His only complaint is his dysphagia -Patient is scheduled for staging laparoscopy, port-a-cath placement, and feeding jejunostomy tube placement closer to home. Will request records once complete. - Patient can begin chemotherapy after procedure as scheduled -Please call with questions. Will have patient follow up in 3-6 months for further discussion or surgical intervention Samir Bustillo DO Seen and discussed with Dr. Carranza. ATTESTATION I personally performed the malave portions of the E/M visit, discussed case with resident and concur with resident documentation of history, physical exam, assessment, and treatment plan unless otherwise noted. The rationale for this approach was discussed with the patient, who understood and seemed comfortable with the plan and recommendations. I answered all questions to the patient's satisfaction. The risks and benefits of surgery were discussed in detail with the patient. I answered all questions to the patient's satisfaction. A consent form was signed. Staff name: Chan Carranza MD Date: 10/21/2017 in this encounter Plan of Treatment Not on fileas of this encounter Visit Diagnoses Diagnosis Malignant neoplasm of lower third of esophagus (HCC) Malignant neoplasm of lower third of esophagus
--- OUTSIDE RECORDS SUMMARY | 2017-10-22 07:46 | XMS REPORT | Clinical Summary ---
Author Author [facility] Organization [facility] Address Unknown Phone Unavailable Care Team Providers Care Shaft Headman Name Role Phone Rodolfo Alvarado MD Unavailable Unavailable Sanam Roberts MD Unavailable Ramsey Reynolds MD PCP Rodolfo Alvarado MD 21 Unavailable Source Comments Some departments are not documenting in the electronic medical record. If you do not see the information that you expected, contact Release of Information in the Health Information Management department at [phone] for further assistance in locating additional records.[facility] Allergies Active Allergy Reactions Severity [...] 81 mg by mouth. Active Active Problems Problem Noted Date Esophageal cancer (HCC) 10/21/2017 Encounters Date Type Specialty Care Team Description 10/21/2017 Telephone Oncology Chan Carranza MD Surgery 10/20/2017 Prep for Case Chan Carranza MD 10/15/2017 Office Visit Oncology Chan Carranza MD Malignant neoplasm of lower third of esophagus (HCC) 10/13/2017 Ancillary Radiology Outpatient, Radiologist Diagnosis unknown [...]
--- OUTSIDE RECORDS SUMMARY | 2017-10-22 07:46 | XMS REPORT | Encounter Summary ---
Author Author [facility] Organization [facility] Address Unknown Phone Unavailable Care Team Providers Care Pharmacy Stock Clerk Name Role Phone Rodolfo Alvarado MD Unavailable Unavailable Sanam Roberts MD Unavailable Ramsey Reynolds MD PCP Rodolfo Alvarado MD 21 Unavailable Encounter Details Date Type Department Care Team Description 10/13/2017 Ancillary Rad Outpatient, Radiologist Diagnosis unknown Orders [address] [place] [address] Social History Tobacco Use Types Packs/Day Years [...]
--- OUTSIDE RECORDS SUMMARY | 2017-10-22 07:46 | XMS REPORT | Encounter Summary ---
Author Author [facility] Organization [facility] Address Unknown Phone Unavailable Care Team Providers Care Professor Of Sport Management Name Role Phone Rodolfo Alvarado MD Unavailable Unavailable Sanam Roberts MD Unavailable Ramsey Reynolds MD PCP Rodolfo Alvarado MD 21 Unavailable Reason for Visit * Reason Comments Navigation Assessment Encounter Details Date Type Department Care Team Description 10/10/2017 Telephone [facility] Chan Carranza MD Navigation Assessment Cancer Center - Exam [address] [place] [address] [place] [address] [phone] Social History Tobacco Use Types Packs/Day Years Used Date Never Assessed Sex Assigned at Date Recorded Not on file as of this encounter Miscellaneous Notes * Telephone Encounter - Caron Mars RN - 10/10/2017 8:13 AM CHARRER Formatting of this note may be different from the original. Navigation Intake Assessment Document Patient Name: Ever Johns : 1950 Insurance: Medicare Appointment Info: Future Appointments Date Time Provider Department Center 10/15/2017 3:20 PM Chan Carranza MD [facility] Exam Diagnosis & Reason for Visit: Esophogeal cancer. CABG 4 years ago at [facility] Physician Info: Referring Physician: Dr. Alvarado Medical Oncology Contact Name & Number: [phone] [facility] Radiation Oncologist: Dr Cruz - initial consult planned for 10/10 Other: Dr Price Acquisition Cost Estimator [phone] Location of Films: PACS Location of Pathology: [...] Counseling: Not Applicable Nutrition: Scheduled to see wound care specialist at referring providers office. Have you recently [...]
--- OUTSIDE RECORDS SUMMARY | 2017-10-22 07:46 | XMS REPORT | Continuity of Care Document ---
Author Author [facility] Organization [facility] Address Unknown Phone Unavailable Care Team Providers Care Streetsweeper Operator Name Role Phone [employer] Unavailable Unavailable Problems Medications Allergies, Adverse Reactions, Alerts Immunizations Results Vital Signs Encounters Location Location Details Encounter Type Encounter Number Reason For Visit Attending Provider ADM Date DC Date Status Source CA SERIES [id number] MUNIR DOUGLAS 10/15/20172017 Active [facility] O MUNIR ENG Active [facility] Procedures Plan of Care Social History Assessment and Plan Family History Advance Directives Functional Status
--- OUTSIDE RECORDS SUMMARY | 2017-10-22 07:46 | XMS REPORT | Encounter Summary ---
Author Author [facility] Organization [facility] Address Unknown Phone Unavailable Care Team Providers Care Biochemical Development Engineer Name Role Phone PCP Unavailable Encounter Details Date Type Department Care Team Description 09/17/[address] [facility] Radiology [address] [place] [address] Social History Tobacco Use Types [...]
--- OUTSIDE RECORDS SUMMARY | 2017-10-22 07:46 | XMS REPORT | Encounter Summary ---
Author Author [facility] Organization [facility] Address Unknown Phone Unavailable Care Team Providers Care Doors Prefitter Name Role Phone Rodolfo Alvarado MD Unavailable Unavailable Sanam Roberts MD Unavailable Ramsey Reynolds MD PCP Rodolfo Alvarado MD 21 Unavailable Reason for Visit * Reason Comments Surgery Encounter Details Date Type Department Care Team Description 10/21/2017 Telephone [facility] Chan Carranza MD Surgery [facility] Exam [address] [place] [address] [place] [address] [phone] Social History Tobacco Use Types Packs/Day Years Used Date Former Smoker Cigarettes 2 15 Quit: 10/03/1983 Smokeless Tobacco: Never Used Alcohol Use Drinks/Week oz/Week Comments No Sex Assigned at Date Recorded Not on file as of this encounter Miscellaneous Notes * Telephone Encounter - Sanjuanita Lui RN - 10/21/2017 10:33 AM CDT Was informed by Dr. Carranza that pt needs to be scheduled for a staging laparoscopy, port placement, and j-tube placement here at on Friday. I called and spoke with the pt who stated that he was "very confused." Pt states that the repair specialist was supposed to place the j-tube yesterday but was unable to do so, so he contacted Dr. Carranza to do this. When I spoke to the pt this morning, he stated that he was scheduled to have his port placed tomorrow morning with Dr. Monzon. Pt is scheduled to see his rad onc (Dr. Goins ) today and says he "is going to iron out the details of getting the feeding tube placed." Pt states he is scheduled to start chemo and radiation on Friday. I called and spoke with Nany, Dr. Alvarado's nurse, who stated that they do need the j-tube to be placed here at . She stated that she would speak to the pt and Dr. Alvarado regarding this and would call me back tomorrow once she has been able to discuss things with both parties. I informed Nany that we would likely be able to do the pt's surgery on Friday, as he will need to be off of his Plavix for 5 days. Nany stated she will call me tomorrow once she has discussed the j-tube with Dr. Alvarado and the pt. in this encounter Plan of Treatment Not on fileas of this encounter Visit Diagnoses Not on filein this encounter
--- OUTSIDE RECORDS SUMMARY | 2017-10-22 07:46 | XMS REPORT | Encounter Summary ---
Author Author [facility] Organization [facility] Address Unknown Phone Unavailable Care Team Providers Care Human Resources Benefits Coordinator Name Role Phone PCP Unavailable Encounter Details Date Type Department Care Team Description 09/30/2017 Hospital [facility] Radiology [address] [place] [address] Social History Tobacco Use Types [...]
--- OUTSIDE RECORDS SUMMARY | 2017-10-22 07:47 | XMS REPORT | Continuity of Care Document ---
Author Author [facility] Organization [facility] Address Unknown Phone Unavailable Allergies Active Description Code Type Severity Reaction Onset Reported/Identified Relationship to Patient Clinical Status Yes meperidine HCl [id number] Drug Allergy Unknown N/A 10/21/2013 Medications There is no data. Problems Date Dx Coded Attending Type Code Diagnosis Diagnosed By 04/05/2013 BLAINE CASTILLO APRN Ot 053.9 HERPES ZOSTER NOS 04/05/2013 BLAINE CASTILLO APRN Ot 599.0 URIN TRACT INFECTION NOS 04/05/2013 BLAINE CASTILLO APRN Ot 782.1 NONSPECIF SKIN ERUPT NEC 10/21/2013 MANUELITO SHERWOOD MD Ot 410.31 AC MYOCARD INFARCT INFRPSTERIOR WALL,INI 10/21/2013 MANUELITO SHERWOOD MD Ot 414.01 CORONARY ATHEROSCLEROSIS OF [place] CORON 10/21/2013 MANUELITO SHERWOOD MD Ot 414.2 CHRONIC TOTAL OCCLUSION OF CORONARY JAMEL 04/02/2016 Ot 278.00 OBESITY, NOS 04/02/2016 Ot 401.9 HYPERTENSION NOS 04/02/2016 Ot 414.00 CORON ATHEROSCLER NOS TYPE VESSEL, NATIV 04/02/2016 Ot 414.8 CHR ISCHEMIC HRT DIS NEC 04/02/2016 Ot V12.29 PERSONAL HX OF [facility] ENDOCRINE, METABOLIC 04/03/2016 SANDY MCKEE REAL ESTATE LOAN OFFICER Ot E78.5 HYPERLIPIDEMIA, UNSPECIFIED 04/03/2016 SANDY MCKEE REAL ESTATE LOAN OFFICER Ot I25.10 ATHSCL HEART DISEASE OF [place] CORONARY 04/24/2016 SANDY MCKEE REAL ESTATE LOAN OFFICER Ot E78.5 HYPERLIPIDEMIA, UNSPECIFIED 04/24/2016 SANDY MCKEE REAL ESTATE LOAN OFFICER Ot I25.10 ATHSCL HEART DISEASE OF [place] CORONARY 04/24/2017 Ot 278.00 OBESITY, NOS 04/24/2017 Ot 401.9 HYPERTENSION NOS 04/24/2017 Ot 414.00 CORON ATHEROSCLER NOS TYPE VESSEL, NATIV 04/24/2017 Ot 414.8 CHR ISCHEMIC HRT DIS NEC 04/24/2017 Ot V12.29 PERSONAL HX OF OTH ENDOCRINE, METABOLIC 04/24/2017 SANDY MCKEE REAL ESTATE LOAN OFFICER Ot E78.5 HYPERLIPIDEMIA, UNSPECIFIED 04/24/2017 SANDY MCKEE REAL ESTATE LOAN OFFICER Ot I25.10 ATHSCL HEART DISEASE OF [place] CORONARY 04/30/2017 VITO HUNTER FACC, ALI FACP CCDS Ot I10 ESSENTIAL (PRIMARY) HYPERTENSION 04/30/2017 VITO HUNTER FACC, ALI FACP CCDS Ot I25.10 ATHSCL HEART DISEASE OF [place] CORONARY 04/30/2017 VITO HUNTER FACC, ALI FACP [...] CCDS Ot I25.10 ATHSCL HEART DISEASE OF [place] CORONARY 05/15/2017 VITO HUNTER FACC, ALI FACP [...] OF OTH ENDOCRINE, METABOLIC 09/16/2017 SANDY MCKEE REAL ESTATE LOAN OFFICER Ot E78.5 HYPERLIPIDEMIA, UNSPECIFIED 09/16/2017 SANDY MCKEE Ot I25.10 ATHSCL HEART DISEASE OF [place] CORONARY 09/16/2017 VITO HUNTER FACC, ALI FACP CCDS Ot I10 ESSENTIAL (PRIMARY) HYPERTENSION 09/16/2017 VITO HUNTER FACC, ALI FACP CCDS Ot I25.10 ATHSCL HEART DISEASE OF [place] CORONARY 09/16/2017 VITO HUNTER FACC, ALI FACP [...] Ot E78.5 HYPERLIPIDEMIA, UNSPECIFIED 09/17/2017 SANDY MCKEE REAL ESTATE LOAN OFFICER Ot I25.10 ATHSCL HEART DISEASE OF [place] CORONARY 09/17/2017 VITO HUNTER FACC, JUAREZ FACP CCDS Ot I10 ESSENTIAL (PRIMARY) HYPERTENSION 09/17/2017 VITO HUNTER FACC, ALI FACP CCDS Ot I25.10 ATHSCL HEART DISEASE OF [place] CORONARY 09/17/2017 VITO HUNTER FACC, ALI FACP [...] MD Ot I25.10 ATHSCL HEART DISEASE OF [place] CORONARY 09/17/2017 EMILY TUTTLE MD Ot I25.2 OLD MYOCARDIAL INFARCTION 09/17/2017 EMILY TUTTLE MD Ot K29.70 GASTRITIS, UNSPECIFIED, WITHOUT BLEEDING 09/17/2017 EMILY TUTTLE MD Ot Z79.82 SNF (CURRENT) USE OF ASPIRIN 09/17/2017 EMILY TUTTLE MD Ot Z79.899 OTHER BOAT HOIST OPERATOR HELPER (CURRENT) DRUG THERAPY 09/17/2017 EMILY TUTTLE MD [...] MD Ot I25.10 ATHSCL HEART DISEASE OF [place] CORONARY 09/23/2017 EMILY TUTTLE MD Ot I25.2 OLD MYOCARDIAL INFARCTION 09/23/2017 EMILY TUTTLE MD Ot K29.70 GASTRITIS, UNSPECIFIED, WITHOUT BLEEDING 09/23/2017 EMILY TUTTLE MD Ot Z79.82 BOAT HOIST OPERATOR HELPER (CURRENT) USE OF ASPIRIN 09/23/2017 EMILY TUTTLE MD Ot Z79.899 OTHER BOAT HOIST OPERATOR HELPER (CURRENT) DRUG THERAPY 09/23/2017 EMILY TUTTLE MD [...] MD Ot I25.10 ATHSCL HEART DISEASE OF [place] CORONARY 10/09/2017 MERCEDES BIANCHI MD Ot I25.5 ISCHEMIC CARDIOMYOPATHY 10/09/2017 MERCEDES BIANCHI MD Ot I48.0 PAROXYSMAL ATRIAL FIBRILLATION 10/09/2017 MERCEDES BIANCHI MD Ot Z79.82 BOAT HOIST OPERATOR HELPER (CURRENT) USE OF ASPIRIN 10/09/2017 MERCEDES BIANCHI MD Ot Z79.899 OTHER SNF (CURRENT) DRUG THERAPY 10/09/2017 MERCEDES BIANCHI MD Ot Z95.1 PRESENCE OF AORTOCORONARY BYPASS GRAFT 10/16/2017 EMILY TUTTLE MD Ot C15.3 MALIGNANT NEOPLASM OF UPPER THIRD OF ESO 10/16/2017 EMILY TUTTLE MD Ot E78.00 PURE HYPERCHOLESTEROLEMIA, UNSPECIFIED 10/16/2017 EMILY TUTTLE MD Ot I10 ESSENTIAL (PRIMARY) HYPERTENSION 10/16/2017 EMILY TUTTLE MD Ot I25.10 ATHSCL HEART DISEASE OF [place] CORONARY 10/16/2017 EMILY TUTTLE MD Ot I25.2 OLD MYOCARDIAL INFARCTION 10/16/2017 EMILY TUTTLE MD Ot K29.70 GASTRITIS, UNSPECIFIED, WITHOUT BLEEDING 10/16/2017 EMILY TUTTLE MD Ot Z79.82 BOAT HOIST OPERATOR HELPER (CURRENT) USE OF ASPIRIN 10/16/2017 EMILY TUTTLE MD Ot Z79.899 OTHER BOAT HOIST OPERATOR HELPER (CURRENT) DRUG THERAPY 10/16/2017 EMILY TUTTLE MD, Ot Z87.891 PERSONAL HISTORY OF NICOTINE DEPENDENCE 10/16/2017 EMILY TUTTLE MD, Ot Z88.5 ALLERGY STATUS TO NARCOTIC AGENT STATUS 10/16/2017 EMILY TUTTLE MD Ot Z95.1 PRESENCE OF AORTOCORONARY BYPASS GRAFT 10/16/2017 EMILY TUTTLE MD Ot Z95.5 PRESENCE OF CORONARY ANGIOPLASTY IMPLANT 10/16/2017 EMILY TUTTLE MD Ot 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, UNSPECI 10/16/2017 EMILY TUTTLE MD, Ot Z01.818 ENCOUNTER FOR OTHER PREPROCEDURAL EXAMIN 10/17/2017 EMILY TUTTLE MD, Ot 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, UNSPECI 10/17/2017 EMILY TUTTLE MD Ot R13.10 DYSPHAGIA, UNSPECIFIED 10/17/2017 EMILY TUTTLE MD, Ot R63.4 ABNORMAL WEIGHT LOSS 10/17/2017 EMILY TUTTLE MD, Ot Z53.29 PROC/TRTMT NOT CRD OUT BEC PT DECISION F 10/17/2017 EMILY TUTTLE MD, Ot 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, UNSPECI 10/17/2017 EMILY TUTTLE MD, Ot R13.10 DYSPHAGIA, UNSPECIFIED 10/17/2017 EMILY TUTTLE MD Ot R63.4 ABNORMAL WEIGHT LOSS 10/17/2017 EMILY TUTTLE MD, Ot Z53.29 PROC/TRTMT NOT CRD OUT BEC PT DECISION F 10/21/2017 EMILY TUTTLE MD, Ot C15.3 MALIGNANT NEOPLASM OF UPPER THIRD OF ESO 10/21/2017 EMILY TUTTLE MD Ot E78.00 PURE HYPERCHOLESTEROLEMIA, UNSPECIFIED 10/21/2017 EMILY TUTTLE MD Ot I10 ESSENTIAL (PRIMARY) HYPERTENSION 10/21/2017 EMILY TUTTLE MD Ot I25.10 ATHSCL HEART DISEASE OF [place] CORONARY 10/21/2017 EMILY TUTTLE MD, Ot I25.2 OLD MYOCARDIAL INFARCTION 10/21/2017 EMILY TUTTLE MD, Ot K29.70 GASTRITIS, UNSPECIFIED, WITHOUT BLEEDING 10/21/2017 EMILY TUTTLE MD Ot Z79.82 SNF (CURRENT) USE OF ASPIRIN 10/21/2017 EMILY TUTTLE MD, Ot Z79.899 OTHER BOAT HOIST OPERATOR HELPER (CURRENT) DRUG THERAPY 10/21/2017 EMILY TUTTLE MD, Ot Z87.891 PERSONAL HISTORY OF NICOTINE DEPENDENCE 10/21/2017 EMILY TUTTLE MD, Ot Z88.5 ALLERGY STATUS TO NARCOTIC AGENT STATUS 10/21/2017 EMILY TUTTLE MD, Ot Z95.1 PRESENCE OF AORTOCORONARY BYPASS GRAFT 10/21/2017 MARRY HUNTER, EMILY Ferreira Z95.5 PRESENCE OF CORONARY ANGIOPLASTY IMPLANT Procedures [...] plasma creatinine measurement (mass/volume) 0.72 mg/dL 0.60-1.30 Methicillin resistant Staphylococcus aureus (MRSA) screening culture - 10:42 Methicillin resistant Staphylococcus aureus (MRSA) screening culture NEG NRG Encounters ACCT No. Visit Date/Time Discharge Status Pt. Type Provider Facility Loc./Unit Complaint [id number] 10/20/2017 13:00:00 10/20/2017 13:00:00 CAN Preadmit EMILY TUTTLE MD [facility] PREOP ESOPHAGEAL CANCER [id number] 10/17/2017 08:15:00 10/17/2017 23:59:59 CLS Outpatient MERCEDES BIANCHI MD [facility] ONC [id number] 10/16/2017 10:10:00 10/16/2017 23:59:59 CLS Outpatient EMILY TUTTLE MD [facility] ESOPHAGEAL CANCER [id number] 10/15/2017 05:34:00 10/15/2017 11:01:00 DIS Outpatient EMILY TUTTLE MD [facility] PREOP ESOPHAGEAL CANCER [id number] 09/30/2017 09:00:00 09/30/2017 23:59:59 CLS Outpatient MERCEDES BIANCHI MD [facility] RAD C15.9 ESOPHAGCAL CA [id number] 09/17/2017 14:32:00 09/17/2017 23:59:59 CLS Outpatient EMILY TUTTLE MD [facility] RAD ESOPHAGEAL MASS ON EGD [id number] 09/17/2017 10:20:00 09/17/2017 15:00:00 DIS Outpatient EMILY TUTTLE MD [facility] ENDO DYSPHAGIA [id number] 09/12/2017 05:35:00 09/12/2017 15:29:00 DIS Outpatient EMILY TUTTLE MD [facility] PREOP EGD [id number] 04/24/2017 07:21:00 04/24/2017 23:59:59 CLS Outpatient VITO HUNTER FACCJUAREZ FACP CCDS [facility] CARD CAD I25.10 [id number] 04/02/2016 09:11:00 04/02/2016 23:59:59 CLS Outpatient SANDY MCKEE [facility] LAB CAD,HLD [id number] 01/06/2014 08:35:00 01/06/2014 23:59:59 CLS Outpatient [id number] 10/21/2013 13:26:00 10/21/2013 18:42:00 DIS Outpatient MANUELITO SHERWOOD MD [facility] CATH DIFFICULTY BREATHING [id number] 04/05/2013 09:16:00 04/05/2013 11:36:00 DIS Emergency BLAINE CASTILLO APRN [facility] ER SPIDER BITE [id number] 10/22/2017 08:30:00 PEN Preadmit EMILY TUTTLE MD [facility] ESOPHAGEAL CANCER [id number] 10/04/2014 13:44:00 Document Registration
[2017-10-22] MEDS ORDERED: ceFAZolin INJECTION 1,000 MG in NS (IVPB) 100 ML IV ONE (08:00)
[2017-10-22] MEDS: LACTATED RINGERS 1,000 ML IV PRN ×2 (08:17→10:03)
[2017-10-22] MEDS ORDERED: PROPOFOL INJECTION 50 ML IV ONE (08:24)
[2017-10-22] MEDS ORDERED: MIDAZOLAM 2 MG/2 ML (VERSED) VIAL ONE (08:24)
--- NOTE | 2017-10-22 09:03 | Progress Note-Pre Operative ---
Pre-Operative Progress Note H&P Reviewed The H&P was reviewed, patient examined and no changes noted. Date Seen by Provider: Oct 22, 2017 Time Seen by Provider: 08:30 Date H&P Reviewed: Oct 22, 2017 Time H&P Reviewed: 08:30 Pre-Operative Diagnosis: esophageal cancer EMILY TUTTLE MD Oct 22, 2017 9:03 am
[2017-10-22] MEDS ORDERED: HYDROcodone/APAP 5 MG/325 MG (LORTAB) TAB PO ONE (09:15)
[2017-10-22] MEDS ORDERED: ACETAMINOPHEN 325 MG TABLET/CAPLET (TYLENOL) PO PRN (09:15)
[2017-10-22] MEDS ORDERED: ONDANSETRON 4 MG/2 ML (SDV) Z0FRAN IVP PRN ×2 (09:15→09:45)
[2017-10-22] MEDS ORDERED: morphine INJ 10 MG/ML 1ML (SYR OR VIAL) IVP PRN (09:15)
[2017-10-22] MEDS ORDERED: fentaNYL INJECTION 100 MCG/2 ML AMP IVP PRN (09:45)
--- NOTE | 2017-10-22 10:05 | Progress Note-Post Operative ---
Post-Operative Progess Note Surgeon (s)/Academic Records Specialist (s) Surgeon EMILY TUTTLE MD Academic Records Specialist: none Pre-Operative Diagnosis esophageal cancer Post-Operative Diagnosis same Procedure & Operative Findings Date of Procedure 10/22/17 Procedure Performed/Findings left subclavian groshong implantable catheter placement under flouroscopy. Anesthesia Type MAC with local Estimated Blood Loss Estimated blood loss (mL): minimal Specimens/Packing Specimens Removed none EMILY TUTTLE MD Oct 22, 2017 10:05 am
--- NOTE | 2017-10-22 10:11 | Discharge Inst-Surgical ---
D/C Lap Instructions-MARRY Follow Up PRN Activity as tolerated Regular Diet Symptoms to Report: Fever over 101 degree F, Nausea/Vomiting Infection Signs and Symptoms to report: Increased redness, Foul odor of wound, Increased drainage Bathing instructions: May shower Operative Area Clean/Dry; Keep incision clean/dry If any problems/questions: Contact your physician or go to Emergency Room EMILY TUTTLE MD Oct 22, 2017 10:11 am
[2017-10-22 10:30] VITALS: BP 126/67
--- NOTE | 2017-10-22 10:33 | Diagnostic Imaging Report ---
INDICATION: Central line placement Portable chest 10:21 AM Left subclavian Groshong catheter tip projects over the SVC. There are postop changes from a median sternotomy. Heart size and pulmonary vascularity are normal. Lungs are clear. IMPRESSION: No acute abnormalities in the chest. Dictated by: Dictated on workstation # [id number]
--- NOTE | 2017-10-22 10:40 | Diagnostic Imaging Report ---
INDICATION: Groshong catheter placement. FINDINGS: Fluoroscopy was provided in the OR during Groshong catheter placement. The Groshong catheter appears to have its tip overlying the SVC. 5 seconds of fluoroscopic time was utilized. IMPRESSION: Fluoroscopy for Groshong catheter placement. Dictated by: Dictated on workstation # [id number]
[2017-10-22 11:00] VITALS: BP 126/67
[2017-10-22 11:30] VITALS: BP 128/72
[2017-10-22 11:40] VITALS: BP 128/72
--- NOTE | 2017-10-22 11:41 | Anesthesia-General Post-Op ---
MAC Patient Condition Mental Status/LOC: Same as Preop Cardiovascular: Satisfactory Nausea/Vomiting: Absent Respiratory: Satisfactory Pain: Controlled Complications: Absent Post Op Complications Complications None Follow Up Care/Instructions Patient Instructions None needed. Anesthesiology Discharge Order Discharge Order Patient is doing well, no complaints, stable vital signs, no apparent adverse anesthesia problems. No complications reported per nursing. MARY CAPPS CRNA Oct 22, 2017 11:41
--- NOTE | 2017-10-22 13:51 | OPERATIVE REPORT ---
DATE OF SERVICE: 10/22/2017 ATTENDING PRIMARY CARE PHYSICIAN: Ramsey Reynolds MD PREOPERATIVE DIAGNOSIS: Esophageal cancer. POSTOPERATIVE DIAGNOSIS: Esophageal cancer. PROCEDURE: Placement of left subclavian Groshong implantable catheter under fluoroscopy. SURGEON: Emily Tuttle MD ANESTHESIA: Monitored anesthesia care with local. ESTIMATED BLOOD LOSS: Minimal. FINDINGS: Catheter tip at superior vena cava -- right atrial junction. DISPOSITION: The patient tolerated the procedure well. INDICATIONS: The patient is a 66-year-old male who presented with dysphagia. He underwent an EGD and found to have a mass which was biopsied and confirmed to be adenocarcinoma. He has been seen by oncology and he will undergo neoadjuvant chemoradiation and potentially a transhiatal esophagectomy. He will require Groshong implantable catheter. DESCRIPTION OF PROCEDURE: The patient was brought to the operating room, laid supine on the table. After adequate IV pain and sedating medications and monitored anesthesia care, the neck and chest were prepped and draped in standard surgical fashion. A 1% lidocaine with epinephrine was then used to anesthetize the overlying skin in the left subclavian region. The cannulating needle was then inserted withdrawing of venous blood from the left subclavian vein. A guidewire was then inserted under direct visualization using fluoroscopy. The cannulating needle removed and a skin incision was made using a 15 blade. The dilator and sheath were then placed over the guidewire. The dilator and guidewire were then removed and the Groshong implantable catheter was then placed under fluoroscopy until the tip was at the superior vena cava -- right atrial junction. The sheath was then removed. The wire within the catheter was then removed. Catheter cut down to size and port placed onto the catheter. The chest reservoir was then created. The skin incision was extended laterally using a 15 blade. A plane was then created between the subcutaneous tissue in the anterior pectoralis fascia using electrocautery as well as blunt dissection. The port was placed into the reservoir and sutured to the anterior pectoralis fascia using interrupted 3-0 Vicryl sutures. The subcutaneous tissue was then reapproximated using 3-0 Vicryl interrupted sutures. Skin was closed using 4-0 Monocryl running subcuticular suture. Wound was then cleaned and covered with Dermabond. The port was accessed with a Mayberry needle and venous blood drawn and heparinized saline pushed in without any resistance. The patient tolerated the procedure well. We will get a post-procedure chest x-ray once placement is as confirmed, the Groshong catheter may be accessed and used at any time. Job ID: [id number] DocumentID: [id number] Dictated Date: 10/22/2017 10:18:53 Subsurface Augmentee Operator Date: 10/22/2017 13:12:17 Dictated By: EMILY TUTTLE MD
== END 2017-10-22 11:40 | disposition home or self-care (01) ==
LOC: SDC 07:30
PROVIDERS: ATTEND Surgery
DX: C15.9 Malignant neoplasm of esophagus, unspecified (principal); K21.9 Gastro-esophageal reflux disease without esophagitis; I10 Essential (primary) hypertension; E78.00 Pure hypercholesterolemia, unspecified; I25.10 Atherosclerotic heart disease of native coronary artery without angina pectoris; I25.2 Old myocardial infarction; Z95.5 Presence of coronary angioplasty implant and graft; Z95.1 Presence of aortocoronary bypass graft; Z88.1 Allergy status to other antibiotic agents; Z87.891 Personal history of nicotine dependence
CPT/HCPCS: 71045

== ENCOUNTER 2017-11-13 08:13 | Emergency (ER) | payer MEDICARE, OTHER ==
[~2017-11-13] VITALS: Ht 177.8 cm; Wt 83.9 kg
[2017-11-13] MEDS ORDERED: NS IV 1000 ML 1,000 ML IV ONE (08:16)
[2017-11-13] MEDS ORDERED: ONDANSETRON 4 MG/2 ML (SDV) Z0FRAN IVP ONE (08:30)
[2017-11-13] MEDS ORDERED: morphine INJ 10 MG/ML 1ML (SYR OR VIAL) IVP ONE (08:30)
[2017-11-13 08:32] LABS: BASOPHILS % (AUTO) 1 % (0-10); EOSINOPHILS % (AUTO) 4 % (0-10); HEMATOCRIT 37 % (40-54); HEMOGLOBIN 12.8 G/DL (13.3-17.7); LYMPHOCYTES # (AUTO) 0.3 X 10^3 (1.0-4.0); LYMPHOCYTES % (AUTO) 26 % (12-44); MEAN CORPUSCULAR HEMOGLOBIN 30 PG (25-34); MEAN CORPUSCULAR HGB CONC 35 G/DL (32-36); MEAN CORPUSCULAR VOLUME 86 FL (80-99); MEAN PLATELET VOLUME 9.9 FL (7.4-10.4); MONOCYTES # (AUTO) 0.2 X 10^3 (0.0-1.0); MONOCYTES % (AUTO) 17 % (0-12); NEUTROPHILS # (AUTO) 0.6 X 10^3 (1.8-7.8); NEUTROPHILS % (AUTO) 53 % (42-75); PLATELET COUNT 211 10^3/uL (130-400); RED BLOOD COUNT 4.24 10^6/uL (4.35-5.85); RED CELL DISTRIBUTION WIDTH 13.4 % (10.0-14.5)
[2017-11-13 08:34] LABS: WHITE BLOOD COUNT 1.1 10^3/uL (4.3-11.0)
[2017-11-13 08:51] LABS: ALANINE AMINOTRANSFERASE 17 U/L (0-55); ALBUMIN 3.7 GM/DL (3.2-4.5); ALKALINE PHOSPHATASE 68 U/L (40-136); BUN/CREATININE RATIO 41; CARBON DIOXIDE 21 MMOL/L (21-32); CHLORIDE 106 MMOL/L (98-107); CREATININE SERUM 0.63 MG/DL (0.60-1.30); GFR ESTIMATED > 60; GLUCOSE 97 MG/DL (70-105); LIPASE 25 U/L (8-78); MAGNESIUM 1.6 MG/DL (1.8-2.4); POTASSIUM 3.6 MMOL/L (3.6-5.0); SODIUM 139 MMOL/L (135-145); TOTAL PROTEIN 6.4 GM/DL (6.4-8.2)
[2017-11-13 09:23] VITALS: BP 122/76
[2017-11-13] MEDS ORDERED: IOHEXOL 350 MG/ML 100 ML (OMNIPAQUE 350) VIAL IV ONE (09:30)
[2017-11-13] MEDS ORDERED: NS 250 ML (IVPB) BAG IV ONE (09:30)
--- NOTE | 2017-11-13 10:12 | Diagnostic Imaging Report ---
PROCEDURE: CT abdomen and pelvis with contrast. TECHNIQUE: Multiple contiguous axial images were obtained through the abdomen and pelvis after administration of intravenous contrast. INDICATION: Esophageal carcinoma with increasing upper abdominal pain and weakness. COMPARISON: Made with prior CT from 09/17/2017. FINDINGS: Imaging through the lung bases demonstrates lung bases to be clear. There is some circumferential wall thickening of the distal esophagus near the GE junction, similar to prior. No discrete liver mass is identified. The gallbladder is unremarkable. Pancreas and spleen are unremarkable. No adrenal mass is detected. The kidneys are unremarkable. The aorta is calcified but nonaneurysmal. No central retroperitoneal or mesenteric lymphadenopathy is seen. The small and large bowel loops appear to be normal caliber. No obstruction is seen. There is no ascites or loculated fluid collection. The bladder and prostate are unremarkable. There is a fat-containing right inguinal hernia. The bony structures are nonacute. IMPRESSION: Stable CT of the abdomen and pelvis when compared with examination from 09/17/2017. No acute feature is detected. Dictated by: Dictated on workstation # [id number]
[2017-11-13 10:32] VITALS: BP 119/72
[2017-11-13] MEDS ORDERED: OXYC-197 PO (10:53)
--- NOTE | 2017-11-13 10:55 | ED Abdominal Pain ---
General Chief Complaint: Abdominal/GI Problems Stated Complaint: WEAK,CA PT Nursing Triage Note: TO ROOM PER W/C. ONSET OF ABD PAIN LAST NIGHT. PATIENT IS A CA PATIENT Sepsis Screen: No Definite Risk Source of Information: Patient Exam Limitations: No Limitations History of Present Illness Date Seen by Provider: Nov 13, 2017 Time Seen by Provider: 08:15 Initial Comments This 67-year-old gentleman presents to the emergency room by private vehicle with severe abdominal pain and altered mental status. He is currently receiving treatment with chemotherapy and radiation for esophageal cancer. He was in the car on the way to the Cancer Center when he developed very severe pain and altered mental status. His brought him to the emergency room. He has had abdominal pain for months but it is much exacerbated today. He also has decreased responsiveness and some confusion. Patient does not take pain medications at home. He also reports having intense "heartburn" last night. He has known history of coronary artery disease. Patient also thinks he may be dehydrated as he has had nausea and vomiting for the past few days. His abdominal pain has been worsening over the past few days as well. Allergies and Home Medications Allergies Coded Allergies: meperidine HCl (Verified Allergy, Unknown, Has received Fentanyl in the past w/o issue, 10/22/17) Home Medications Amlodipine Besylate 10 Mg Tablet, 10 MG PO DAILY, (Reported) Aspirin 81 Mg Tablet., 81 MG PO DAILY, (Reported) Atorvastatin Calcium 40 Mg Tablet, 40 MG PO DAILY, (Reported) Clopidogrel Bisulfate 75 Mg Tablet, 75 MG PO DAILY, (Reported) Oxycodone HCl/Acetaminophen 1 Each Tablet, 1-2 EACH PO Q4H PRN for PAIN- MODERATE TO SEVERE Prescribed by: NILSON CAMARENA on 11/13/17 1053 Pantoprazole Sodium 40 Mg Tablet., 40 MG PO DAILY, (Reported) Patient Home Medication List Home Medication List Reviewed: Yes Review of Systems Constitutional: no symptoms reported EENTM: No Symptoms Reported Respiratory: No Symptoms Reported Cardiovascular: No Symptoms Reported Gastrointestinal: See HPI Genitourinary: No Symptoms Reported Musculoskeletal: no symptoms reported Skin: no symptoms reported Psychiatric/Neurological: See HPI Endocrine: No Symptoms Reported Hematologic/Lymphatic: No Symptoms Reported Past Pfcgonf-Invikz-Wboglz Hx Patient Social History Alcohol Use: Denies Use Recreational Drug Use: No Type Used: Cigarettes Former Smoker, Quit: Sep 12, 1983 Recent Foreign Travel: No Contact w/Someone Who Travel: No Recent Infectious Disease Expo: No Recent Hopitalizations: No Seasonal Allergies Seasonal Allergies: No Past Medical History Surgeries: Yes CABG, Coronary Stent Respiratory: No Cardiac: Yes (cabg x1) Coronary Artery Disease, Heart Attack, Hypertension Neurological: No Genitourinary: Yes Kidney Stones Gastrointestinal: Yes (nausea, wt loss, difficulty swallowing) Musculoskeletal: No Endocrine: No Loss of Vision: Right Cancer: Yes Esophageal Psychosocial: No Integumentary: Yes (hx of SHINGLES) Blood Disorders: No Physical Exam Vital Signs Vital Signs - First Documented 11/13/17 08:13 Temp 97.9 Pulse 72 Resp 18 B/P (MAP) 118/83 (95) Pulse Ox 100 O2 Delivery Room Air Capillary Refill : Less Than 3 Seconds General Appearance: WD/WN, moderate distress HEENT: PERRL/EOMI, normal ENT inspection, pharynx normal Neck: normal inspection Respiratory: lungs clear, normal breath sounds, no respiratory distress, no accessory muscle use Cardiovascular: regular rate, rhythm, no edema, no murmur Gastrointestinal: normal bowel sounds, soft, tenderness (diffuse and severe) Extremities: normal inspection, no pedal edema Neurologic/Psychiatric: electrical integrator II-XII nml as tested, no motor/sensory deficits, alert, normal mood/affect, other (intermittently confused, resolving with IV fluids and treatment of pain) Progress/Results/Core Measures Lab Results Laboratory Tests Test 11/13/17 08:27 Range/Units White Blood Count 1.1 *L 4.3-11.0 10^3/uL Red Blood Count 4.24 L 4.35-5.85 10^6/uL Hemoglobin 12.8 L 13.3-17.7 G/DL Hematocrit 37 L 40-54 % Mean Corpuscular Volume 86 80-99 FL Mean Corpuscular Hemoglobin 30 25-34 PG Mean Corpuscular Hemoglobin Concent 35 32-36 G/DL Red Cell Distribution Width 13.4 10.0-14.5 % Platelet Count 211 130-400 10^3/uL Mean Platelet Volume 9.9 7.4-10.4 FL Neutrophils (%) (Auto) 53 42-75 % Lymphocytes (%) (Auto) 26 12-44 % Monocytes (%) (Auto) 17 H 0-12 % Eosinophils (%) (Auto) 4 0-10 % Basophils (%) (Auto) 1 0-10 % Neutrophils # (Auto) 0.6 L 1.8-7.8 X 10^3 Lymphocytes # (Auto) 0.3 L 1.0-4.0 X 10^3 Monocytes # (Auto) 0.2 0.0-1.0 X 10^3 Eosinophils # (Auto) 0.0 0.0-0.3 10^3/uL Basophils # (Auto) 0.0 0.0-0.1 10^3/uL Sodium Level 139 135-145 MMOL/L Potassium Level 3.6 3.6-5.0 MMOL/L Chloride Level 106 98-107 MMOL/L Carbon Dioxide Level 21 21-32 MMOL/L Anion Gap 12 5-14 MMOL/L Blood Urea Nitrogen 26 H 7-18 MG/DL Creatinine 0.63 0.60-1.30 MG/DL Estimat Glomerular Filtration Rate > 60 BUN/Creatinine Ratio 41 Glucose Level 97 70-105 MG/DL Calcium Level 9.0 8.5-10.1 MG/DL Magnesium Level 1.6 L 1.8-2.4 MG/DL Total Bilirubin 1.0 0.1-1.0 MG/DL Aspartate Amino Transf (AST/SGOT) 19 5-34 U/L Alanine Aminotransferase (ALT/SGPT) 17 0-55 U/L Alkaline Phosphatase 68 40-136 U/L Troponin I < 0.30 <0.30 NG/ML Total Protein 6.4 6.4-8.2 GM/DL Albumin 3.7 3.2-4.5 GM/DL Lipase 25 8-78 U/L My Orders Orders - NILSON SANCHEZ MD Cbc With Automated Diff (11/13/17 08:16) Comprehensive Metabolic Panel (11/13/17 08:16) Lipase (11/13/17 08:16) Magnesium (11/13/17 08:16) Saline Lock/Iv-Start (11/13/17 08:16) Ns Iv 1000 Ml (Sodium Chloride 0.9%) (11/13/17 08:16) Ondansetron Injection (Zofran Injectio (11/13/17 08:30) Morphine Injection (Morphine Injection (11/13/17 08:30) Implanted Port: Access (11/13/17 08:16) Ct Abdomen/Pelvis W (11/13/17 08:58) Iohexol Injection (Omnipaque 350 Mg/Ml 1 (11/13/17 09:30) Ns (Ivpb) (Sodium Chloride 0.9%) (11/13/17 09:30) Troponin I (11/13/17 10:16) Ekg Tracing (11/13/17 10:16) Medications Given in ED Current Medications Medications Dose Ordered Sig/El Route Start Time Stop Time Status Last Admin Dose Admin Iohexol 100 ml ONCE ONCE IV 11/13/17 09:30 11/13/17 09:31 DC 11/13/17 09:50 100 ML Morphine Sulfate 5 mg ONCE ONCE IVP 11/13/17 08:30 11/13/17 08:31 DC 11/13/17 08:27 5 MG Ondansetron HCl 8 mg ONCE ONCE IVP 11/13/17 08:30 11/13/17 08:31 DC 11/13/17 08:26 8 MG Sodium Chloride 250 ml ONCE ONCE IV 11/13/17 09:30 11/13/17 09:31 DC 11/13/17 09:50 80 ML Sodium Chloride 1,000 ml @ 0 mls/hr Q0M ONCE IV 11/13/17 08:16 11/13/17 08:19 DC 11/13/17 08:28 1,000 MLS/HR Vital Signs/I&O 11/13/17 11/13/17 11/13/17 11/13/17 08:13 09:23 10:32 11:05 Temp 97.9 Pulse 72 58 60 67 Resp 18 18 B/P (MAP) 118/83 (95) 122/76 (91) 119/72 (88) 111/56 Pulse Ox 100 98 100 98 O2 Delivery Room Air Room Air Room Air Blood Pressure Mean: 88 Progress Note : Progress Note Patient was hydrated with IV normal saline and pain was treated with morphine. Zofran was given for nausea. Labs were relatively unremarkable. CT of the abdomen and pelvis with contrast was pursued to rule out possible surgical emergencies such as bowel obstruction or perforation. CT showed no acute changes. Patient felt much better with treatment and was dismissed with a prescription for Percocet. He ambulated out of the ER alert and with no difficulty. Diagonstic Imaging: CT Plain Films/CT/US/NM/MRI: abdomen, pelvis Comments CT abdomen and pelvis viewed by me and report reviewed. See report below: NAME: [facility] REC#: [id number] PT STATUS: DEP ER : 1950 PHYSICIAN: NILSON ASNCHEZ MD ADMIT DATE: 11/13/17/ER Signed Date of Exam: 11/13/17 CT ABDOMEN/PELVIS W PROCEDURE: CT abdomen and pelvis with contrast. TECHNIQUE: Multiple contiguous axial images were obtained through the abdomen and pelvis after administration of intravenous contrast. INDICATION: Esophageal carcinoma with increasing upper abdominal pain and weakness. COMPARISON: Made with prior CT from 09/17/2017. FINDINGS: Imaging through the lung bases demonstrates lung bases to be clear. There is some circumferential wall thickening of the distal esophagus near the GE junction, similar to prior. No discrete liver mass is identified. The gallbladder is unremarkable. Pancreas and spleen are unremarkable. No adrenal mass is detected. The kidneys are unremarkable. The aorta is calcified but nonaneurysmal. No central retroperitoneal or mesenteric lymphadenopathy is seen. The small and large bowel loops appear to be normal caliber. No obstruction is seen. There is no ascites or loculated fluid collection. The bladder and prostate are unremarkable. There is a fat-containing right inguinal hernia. The bony structures are nonacute. IMPRESSION: Stable CT of the abdomen and pelvis when compared with examination from 09/17/2017. No acute feature is detected. Dictated by: Dictated on workstation # [id number] Dict: 11/13/17 1004 Trans: 11/13/17 1254 Interpreted by: YUMI OTT MD Electronically signed by: YUMI OTT MD 11/13/17 1254 Departure Impression Primary Impression: Generalized abdominal pain Additional Impressions: Nausea and vomiting Qualified Codes: R11.2 - Nausea with vomiting, unspecified Esophageal cancer Qualified Codes: C15.9 - Malignant neoplasm of esophagus, unspecified Disposition: 01 HOME, SELF-CARE Condition: Improved Departure-Patient Inst. Decision time for Depature: 10:51 Referrals: PAN HOLLY MD (PCP/Family) Primary Care Physician Patient Instructions: Acute Abdomen (Belly Pain), Adult (DC) Add. Discharge Instructions: Drink plenty of clear liquids. Use your Zofran nausea medicine as prescribed. Use your Percocet as prescribed for pain. You may wish to take a stool softener such as Colace once or twice a day to prevent constipation while on narcotic pain medicine like Percocet. Keep your follow-up appointments with the Cancer Center. Return to the ER symptoms are worsening. All discharge instructions reviewed with patient and/or family. Voiced understanding. Scripts Oxycodone HCl/Acetaminophen (Percocet 5-325 mg Tablet) 1 Each Tablet 1-2 EACH PO Q4H PRN for PAIN-MODERATE TO SEVERE, #30 TAB Prov: NILSON SANCHEZ MD 11/13/17 Copy Copies To 1: MERCEDES BIANCHI MD Copies To 2: PAN HOLLY MD, JOSHUA T MD Nov 13, 2017 10:55
[2017-11-13 11:05] VITALS: BP 111/56
--- OUTSIDE RECORDS SUMMARY | 2017-11-13 13:19 | XMS REPORT | Encounter Summary ---
Author Author [facility] Organization [facility] Address Unknown Phone Unavailable Care Team Providers Care Operator Assistant I Cementing Name Role Phone Rodolfo Alvarado MD Unavailable Unavailable Sanam Roberts MD Unavailable Ramsey Reynolds MD PCP Rodolfo Alvarado MD 21 Unavailable Reason for Visit * Reason Comments Other Encounter Details Date Type Department Care Team Description 10/22/2017 Telephone [facility] Chan Carranza MD Other Cancer [facility] - [facility] Exam [address] [place] [address] [place] [address] [phone] Social History Tobacco Use Types Packs/Day Years Used Date Former Smoker Cigarettes 2 15 Quit: 10/03/1983 Smokeless Tobacco: Never Used Alcohol Use Drinks/Week oz/Week Comments No Sex Assigned at Date Recorded Not on file as of this encounter Miscellaneous Notes * Telephone Encounter - Sanjuanita Lui RN - 10/22/2017 9:[address] Yen nurse, Nany, called this morning and after Dr. Alvarado (med onc) and Dr. Goins (rad onc) spoke with the pt, they have decided to hold off on the j- tube for now and proceed with port placement today and starting treatment on Friday. Dr. Carranza and Matilda updated of plan. in this encounter Plan of Treatment Not on fileas of this encounter Visit Diagnoses Not on filein this encounter
--- OUTSIDE RECORDS SUMMARY | 2017-11-13 13:19 | XMS REPORT | Encounter Summary ---
Author Author [facility] Organization [facility] Address Unknown Phone Unavailable Care Team Providers Care Credit Control Administrator Name Role Phone Rodolfo Alvarado MD Unavailable Unavailable Sanam Roberts MD Unavailable Ramsey Reynolds MD PCP Rodolfo Alvarado MD 21 Unavailable Reason for Visit * Reason Comments Surgery Encounter Details Date Type Department Care Team Description 10/21/2017 Telephone The [facility] Chan Carranza MD Surgery [facility] Exam [address] [place] [address] [place] [address] [phone] Social History Tobacco Use Types Packs/Day Years [...] was "very confused." Pt states that the sewing machine adjuster was supposed to place the j-tube yesterday [...]
--- OUTSIDE RECORDS SUMMARY | 2017-11-13 13:19 | XMS REPORT | Encounter Summary ---
Author Author [facility] Organization [facility] Address Unknown Phone Unavailable Care Team Providers Care Fire Engine Pump Operator Name Role Phone PCP Unavailable Encounter Details Date Type Department Care Team Description 09/17/2017 Hospital [facility] Radiology [address] [place] [address] Social History Tobacco Use Types [...]
--- OUTSIDE RECORDS SUMMARY | 2017-11-13 13:19 | XMS REPORT | Encounter Summary ---
Author Author [facility] Organization [facility] Address Unknown Phone Unavailable Care Team Providers Care Dedicated Owner Operator Name Role Phone Rodolfo Alvarado MD Unavailable Unavailable Sanam Roberts MD Unavailable Ramsey Reynolds MD PCP Rodolfo Alvarado MD 21 Unavailable Encounter Details Date Type Department Care Team Description 10/13/2017 Ancillary Rad Outpatient, Radiologist Diagnosis unknown Orders [address] [place] [address] Social History Tobacco Use Types Packs/Day Years [...]
--- OUTSIDE RECORDS SUMMARY | 2017-11-13 13:19 | XMS REPORT | Encounter Summary ---
Author Author [facility] Organization [facility] Address Unknown Phone Unavailable Care Team Providers Care Costume Shop Manager Name Role Phone Rodolfo Alvarado MD Unavailable Unavailable Sanam Roberts MD Unavailable Ramsey Reynolds MD PCP Rodolfo Alvarado MD 21 Unavailable Reason for Visit * Reason Comments Navigation Assessment Encounter Details Date Type Department Care Team Description 10/10/2017 Telephone [facility] Chan Carranza MD Navigation Assessment Cancer Center - Exam [address] [place] [address] [place] [address] [phone] Social History Tobacco Use Types Packs/Day Years Used Date Never Assessed Sex Assigned at Date Recorded Not on file as of this encounter Miscellaneous Notes * Telephone Encounter - Caron Mars RN - 10/10/2017 8:13 AM JEWEL INSERTER Formatting of this note may be different from the original. Navigation Intake Assessment Document Patient Name: Ever Johns : 1950 Insurance: Medicare Appointment Info: Future Appointments Date Time Provider Department Center 10/15/2017 3:20 PM Chan Carranza MD [facility] Exam Diagnosis & Reason for Visit: Esophogeal cancer. CABG 4 years ago at [facility] Physician Info: Referring Physician: Dr. Alvarado Medical Oncology Contact Name & Number: [phone] [facility]ologist: Dr Cruz - initial consult planned for 10/10 Other: Dr Price Heating Engineer [phone] Location of Films: PACS Location of Pathology: [...] Counseling: Not Applicable Nutrition: Scheduled to see bench shear operator at referring providers office. Have you recently [...]
--- OUTSIDE RECORDS SUMMARY | 2017-11-13 13:19 | XMS REPORT | Encounter Summary ---
Author Author [facility] Organization [facility] Address Unknown Phone Unavailable Care Team Providers Care Systems Navigator Name Role Phone PCP Unavailable Encounter Details Date Type Department Care Team Description 09/30/2017 Hospital [facility] Radiology [address] [place] [address] Social History Tobacco Use Types [...]
--- OUTSIDE RECORDS SUMMARY | 2017-11-13 13:19 | XMS REPORT | Clinical Summary ---
Author Author [facility] Organization [facility] Address Unknown Phone Unavailable Care Team Providers Care Technical Analyst Name Role Phone Rodolfo Alvarado MD Unavailable Unavailable Sanam Roberts MD Unavailable Ramsey Reynolds MD PCP Rodolfo Alvarado MD 21 Unavailable Source Comments Some departments are not documenting in the electronic medical record. If you do not see the information that you expected, contact Release of Information in the Health Information Management department at [phone] for further assistance in locating additional records.[facility] Allergies Active Allergy Reactions Severity Noted Date [...] Encounters Date Type Specialty Care Team Description 10/22/2017 Telephone Oncology Chan Carranza MD Other 10/21/2017 Telephone Oncology Chan Carrazna MD Surgery 10/20/2017 Prep for Case Chan [...]
--- OUTSIDE RECORDS SUMMARY | 2017-11-13 13:19 | XMS REPORT | Continuity of Care Document ---
Author Author [facility] Organization [facility] Address Unknown Phone Unavailable Care Team Providers Care Dispensing Lead Name Role Phone [employer] Unavailable Unavailable Problems Medications Allergies, Adverse Reactions, Alerts Immunizations Results Vital Signs Encounters Location Location Details Encounter Type Encounter Number Reason For Visit Attending Provider ADM Date DC Date Status Source O 09/30/2017 09/30/2017 Active [facility] [place] SERIES [id number] MUNIR DOUGLAS 10/15/20172017 Active [facility] Procedures Plan of Care Social History Assessment and Plan Family History Advance Directives Functional Status
--- OUTSIDE RECORDS SUMMARY | 2017-11-13 13:19 | XMS REPORT | Encounter Summary ---
Author Author [facility] Organization [facility] Address Unknown Phone Unavailable Care Team Providers Care Advertising Assistant Manager Name Role Phone Rodolfo Alvarado MD [...] [place], Oncology jason Giles MD ca/[facility] [address] re/ref from [address] [place] [address] rocedures Phone: NEW PATIENT [phone] Encounter Details Date Type Department Care Team Description 10/15/2017 Office Visit [facility] Chan Carranza MD Malignant neoplasm of Cancer Center - [facility] Exam [address] lower third of esophagus [address] ([facility] [place] [address] [place] [address] [phone] Social History Tobacco Use Types Packs/Day Years [...] may be different from the original. Name: vEer Johns : 1950 AGE: 66 y.o. DATE [...] that he will begin chemotherapy down in [facility] [place]. He denies nausea, vomiting, fever, chills. He [...] that he will begin chemotherapy down in [facility] [place]. He denies nausea, vomiting, fever, chills. He [...]
--- OUTSIDE RECORDS SUMMARY | 2017-11-13 13:19 | XMS REPORT | Encounter Summary ---
Author Author [facility] Organization [facility] Address Unknown Phone Unavailable Care Team Providers Care Jd Edwards Developer Name Role Phone Rodolfo Alvarado MD Unavailable Unavailable Sanam Roberts MD Unavailable Ramsey Reynolds MD PCP Rodolfo Alvarado MD 21 Unavailable Encounter Details Date Type Department Care Team Description 10/20/2017 Prep for Case [facility] Chan Carranza MD [address] [address] [address] [place] [address] [phone] Social History Tobacco Use Types Packs/Day Years Used Date Former Smoker Cigarettes 2 15 Quit: 10/03/1983 Smokeless Tobacco: Never Used Alcohol Use Drinks/Week oz/Week Comments No Sex Assigned at Date Recorded Not on file as of this encounter Plan of Treatment Not on fileas of this encounter Visit Diagnoses Not on filein this encounter
--- OUTSIDE RECORDS SUMMARY | 2017-11-13 13:20 | XMS REPORT | Continuity of Care Document ---
Author Author [facility] Organization [facility] Address Unknown Phone Unavailable Allergies Active Description Code Type Severity Reaction Onset Reported/Identified Relationship to Patient Clinical Status Yes meperidine HCl [id number] Drug Allergy Unknown N/A 10/21/2013 Yes meperidine HCl [id number] Drug Allergy Unknown Has received Fe 10/22/2017 Medications There is no data. 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,INI 10/21/2013 KAELA HUNTER, MANUELITO Ot 414.01 CORONARY ATHEROSCLEROSIS OF [place] CORON 10/21/2013 MANUELITO SHERWOOD MD Ot 414.2 CHRONIC TOTAL OCCLUSION OF CORONARY JAM[place] 04/02/2016 Ot 278.00 OBESITY, NOS 04/02/2016 Ot 401.9 HYPERTENSION NOS 04/02/2016 Ot 414.00 CORON ATHEROSCLER NOS TYPE VESSEL, NATIV 04/02/2016 Ot 414.8 CHR ISCHEMIC HRT DIS NEC 04/02/2016 Ot V12.29 PERSONAL HX OF [facility] ENDOCRINE, METABOLIC 04/03/2016 SANDY MCKEE OPERATIONAL TEST MECHANIC Ot E78.5 HYPERLIPIDEMIA, UNSPECIFIED 04/03/2016 SANDY MCKEE OPERATIONAL TEST MECHANIC Ot I25.10 ATHSCL HEART DISEASE OF [place] CORONARY 04/24/2016 SANDY MCKEE L OPERATIONAL TEST MECHANIC Ot E78.5 HYPERLIPIDEMIA, UNSPECIFIED 04/24/2016 SANDY MCKEE OPERATIONAL TEST MECHANIC Ot I25.10 ATHSCL HEART DISEASE OF [place] CORONARY 04/24/2017 Ot 278.00 OBESITY, NOS 04/24/2017 Ot 401.9 HYPERTENSION NOS 04/24/2017 Ot 414.00 CORON ATHEROSCLER NOS TYPE VESSEL, NATIV 04/24/2017 Ot 414.8 CHR ISCHEMIC HRT DIS NEC 04/24/2017 Ot V12.29 PERSONAL HX OF OTH ENDOCRINE, METABOLIC 04/24/2017 SANDY MCKEE OPERATIONAL TEST MECHANIC Ot E78.5 HYPERLIPIDEMIA, UNSPECIFIED 04/24/2017 SANDY MCKEE OPERATIONAL TEST MECHANIC Ot I25.10 ATHSCL HEART DISEASE OF [place] CORONARY 04/30/2017 VITO HUNTER FACC, ALI FACP CCDS Ot I10 ESSENTIAL (PRIMARY) HYPERTENSION 04/30/2017 VITO HUNTER FACC, ALI FACP CCDS Ot I25.10 ATHSCL HEART DISEASE OF [place] CORONARY 04/30/2017 VITO HUNTER FACC, ALI FACP [...] CCDS Ot I25.10 ATHSCL HEART DISEASE OF [place] CORONARY 05/15/2017 VITO HUNTER FAC, ALI FACP CCDS Ot I25.5 ISCHEMIC CARDIOMYOPATHY 05/15/2017 VITO HUNTER FAC, ALI FACP CCDS Ot I65.23 OCCLUSION AND STENOSIS OF [place] 05/15/2017 VITO HUNTER [facility], ALI FACP CCDS Ot Z86.2 PRSNL HISTORY [...] OF OTH ENDOCRINE, METABOLIC 09/16/2017 SANDY MCKEE OPERATIONAL TEST MECHANIC Ot E78.5 HYPERLIPIDEMIA, UNSPECIFIED 09/16/2017 RYLEE SANDY Monica OPERATIONAL TEST MECHANIC Ot I25.10 ATHSCL HEART DISEASE OF [place] CORONARY 09/16/2017 VITO HUNTER FACC, ALI FACP CCDS Ot I10 ESSENTIAL (PRIMARY) HYPERTENSION 09/16/2017 VITO HUNTER FACC, ALI FACP CCDS Ot I25.10 ATHSCL HEART DISEASE OF [place] CORONARY 09/16/2017 VITO HUNTER FACC, ALI FACP [...] NEC 09/17/2017 Ot V12.29 PERSONAL HX OF OT ENDOCRINE, METABOLIC 09/17/2017 RYLEE SANDY L OPERATIONAL TEST MECHANIC Ot E78.5 HYPERLIPIDEMIA, UNSPECIFIED 09/17/2017 RYLEE SANDY L OPERATIONAL TEST MECHANIC Ot I25.10 ATHSCL HEART DISEASE OF [place] CORONARY 09/17/2017 VITO HUNTER FACC, JUAREZ FACP CCDS Ot I10 ESSENTIAL (PRIMARY) HYPERTENSION 09/17/2017 VITO HUNTER FACC, ALI FACP CCDS Ot I25.10 ATHSCL HEART DISEASE OF [place] CORONARY 09/17/2017 VITO HUNTER FACC, ALI FACP [...] MD Ot I25.10 ATHSCL HEART DISEASE OF [place] CORONARY 09/17/2017 EMILY TUTTLE MD Ot I25.2 OLD MYOCARDIAL INFARCTION 09/17/2017 EMILY TUTTLE MD Ot K29.70 GASTRITIS, UNSPECIFIED, WITHOUT BLEEDING 09/17/2017 EMILY TUTTLE MD Ot Z79.82 GRAVITY METER OBSERVER (CURRENT) USE OF ASPIRIN 09/17/2017 EMILY TUTTLE MD Ot Z79.899 OTHER GRAVITY METER OBSERVER (CURRENT) DRUG THERAPY 09/17/2017 EMILY TUTTLE MD [...] MD Ot I25.10 ATHSCL HEART DISEASE OF [place] CORONARY 09/23/2017 EMILY TUTTLE MD Ot I25.2 OLD MYOCARDIAL INFARCTION 09/23/2017 EMILY TUTTLE MD Ot K29.70 GASTRITIS, UNSPECIFIED, WITHOUT BLEEDING 09/23/2017 EMILY TUTTLE MD Ot Z79.82 USP (CURRENT) USE OF ASPIRIN 09/23/2017 EMILY TUTTLE MD Ot Z79.899 OTHER GRAVITY METER OBSERVER (CURRENT) DRUG THERAPY 09/23/2017 EMILY TUTTLE MD [...] MD Ot I25.10 ATHSCL HEART DISEASE OF [place] CORONARY 10/09/2017 MERCEDES BIANCHI MD Ot I25.5 ISCHEMIC CARDIOMYOPATHY 10/09/2017 MERCEDES BIANCHI MD Ot I48.0 PAROXYSMAL ATRIAL FIBRILLATION 10/09/2017 MERCEDES BIANCHI MD Ot Z79.82 USP (CURRENT) USE OF ASPIRIN 10/09/2017 MERCEDES BIANCHI MD Ot Z79.899 OTHER USP (CURRENT) DRUG THERAPY 10/09/2017 MERCEDES BIANCHI MD Ot Z95.1 PRESENCE OF AORTOCORONARY BYPASS GRAFT 10/15/2017 EMILY TUTTLE MD Ot 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, UNSPECI 10/15/2017 EMILY TUTTLE MD Ot Z01.818 ENCOUNTER FOR OTHER PREPROCEDURAL EXAMIN 10/16/2017 EMILY TUTTLE MD Ot C15.3 MALIGNANT NEOPLASM OF UPPER THIRD OF ESO 10/16/2017 EMILY TUTTLE MD Ot E78.00 PURE HYPERCHOLESTEROLEMIA, UNSPECIFIED 10/16/2017 EMILY TUTTLE MD Ot I10 ESSENTIAL (PRIMARY) HYPERTENSION 10/16/2017 EMILY TUTTLE MD Ot I25.10 ATHSCL HEART DISEASE OF [place] CORONARY 10/16/2017 EMILY TUTTLE MD Ot I25.2 OLD MYOCARDIAL INFARCTION 10/16/2017 EMILY TUTTLE MD Ot K29.70 GASTRITIS, UNSPECIFIED, WITHOUT BLEEDING 10/16/2017 EMILY TUTTLE MD Ot Z79.82 GRAVITY METER OBSERVER (CURRENT) USE OF ASPIRIN 10/16/2017 EMILY TUTTLE MD Ot Z79.899 OTHER GRAVITY METER OBSERVER (CURRENT) DRUG THERAPY 10/16/2017 EMILY TUTTLE MD Ot Z87.891 PERSONAL HISTORY OF NICOTINE DEPENDENCE 10/16/2017 EMILY TUTTLE MD, Ot Z88.5 ALLERGY STATUS TO NARCOTIC AGENT STATUS 10/16/2017 EMILY TUTTLE MD, Ot Z95.1 PRESENCE OF AORTOCORONARY BYPASS GRAFT 10/16/2017 EMILY TUTTLE MD, Ot Z95.5 PRESENCE OF CORONARY ANGIOPLASTY IMPLANT 10/16/2017 EMILY TUTTLE MD, Ot C15.9 MALIGNANT NEOPLASM [...] UPPER THIRD OF ESO 10/21/2017 EMILY TUTTLE MD, Ot E78.00 PURE HYPERCHOLESTEROLEMIA, UNSPECIFIED 10/21/2017 EMILY TUTTLE MD Ot I10 ESSENTIAL (PRIMARY) HYPERTENSION 10/21/2017 EMILY TUTTLE MD, Ot I25.10 ATHSCL HEART DISEASE OF [place] CORONARY 10/21/2017 EMILY TUTTLE MD, Ot I25.2 OLD MYOCARDIAL INFARCTION 10/21/2017 EMILY TUTTLE MD, Ot K29.70 GASTRITIS, UNSPECIFIED, WITHOUT BLEEDING 10/21/2017 EMILY TUTTLE MD, Ot Z79.82 GRAVITY METER OBSERVER (CURRENT) USE OF ASPIRIN 10/21/2017 EMILY TUTTLE MD, Ot Z79.899 OTHER GRAVITY METER OBSERVER (CURRENT) DRUG THERAPY 10/21/2017 EMILY TUTTLE MD Ot Z87.891 PERSONAL HISTORY OF NICOTINE DEPENDENCE 10/21/2017 EMILY TUTTLE MD, Ot Z88.5 ALLERGY STATUS TO NARCOTIC AGENT STATUS 10/21/2017 EMILY TUTTLE MD Ot Z95.1 PRESENCE OF AORTOCORONARY BYPASS GRAFT 10/21/2017 EMILY TUTTLE MD Ot Z95.5 PRESENCE OF CORONARY ANGIOPLASTY IMPLANT 10/22/2017 MERCEDES BIANCHI MD Ot 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 10/22/2017 MERCEDES BIANCHI MD Ot E78.5 HYPERLIPIDEMIA, UNSPECIFIED 10/22/2017 MERCEDES BIANCHI MD Ot I10 ESSENTIAL (PRIMARY) HYPERTENSION 10/22/2017 MERCEDES BIANCHI MD Ot I25.10 ATHSCL HEART DISEASE OF [place] CORONARY 10/22/2017 MERCEDES BIANCHI MD Ot I25.5 ISCHEMIC CARDIOMYOPATHY 10/22/2017 MERCEDES BIANCHI MD Ot I48.0 PAROXYSMAL ATRIAL FIBRILLATION 10/22/2017 MERCEDES BIANCHI MD Ot Z79.82 GRAVITY METER OBSERVER (CURRENT) USE OF ASPIRIN 10/22/2017 MERCEDES BIANCHI MD Ot Z79.899 OTHER GRAVITY METER OBSERVER (CURRENT) DRUG THERAPY 10/22/2017 MERCEDES BIANCHI MD Ot Z95.1 PRESENCE OF AORTOCORONARY BYPASS GRAFT 10/22/2017 EMILY TUTTLE MD Ot 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, UNSPECI 10/22/2017 EMILY TUTTLE MD Ot E78.00 PURE HYPERCHOLESTEROLEMIA, UNSPECIFIED 10/22/2017 EMILY TUTTLE MD Ot I10 ESSENTIAL (PRIMARY) HYPERTENSION 10/22/2017 EMILY TUTTLE MD Ot I25.10 ATHSCL HEART DISEASE OF [place] CORONARY 10/22/2017 EMILY TUTTLE MD Ot I25.2 OLD MYOCARDIAL INFARCTION 10/22/2017 EMILY TUTTLE MD Ot K21.9 GASTRO-ESOPHAGEAL REFLUX DISEASE WITHOUT 10/22/2017 EMILY TUTTLE MD Ot Z87.891 PERSONAL HISTORY OF NICOTINE DEPENDENCE 10/22/2017 EMILY TUTTLE MD Ot Z88.1 ALLERGY STATUS TO OTHER ANTIBIOTIC AGENT 10/22/2017 EMILY TUTTLE MD Ot Z95.1 PRESENCE OF AORTOCORONARY BYPASS GRAFT 10/22/2017 EMILY TUTTLE MD Ot Z95.5 PRESENCE OF CORONARY ANGIOPLASTY IMPLANT 10/22/2017 MERCEDES BIANCHI MD Ot 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 10/22/2017 MERCEDES BIANCHI MD Ot E78.5 HYPERLIPIDEMIA, UNSPECIFIED 10/22/2017 MERCEDES BIANCHI MD Ot I10 ESSENTIAL (PRIMARY) HYPERTENSION 10/22/2017 MERCEDES BIANCHI MD Ot I25.10 ATHSCL HEART DISEASE OF [place] CORONARY 10/22/2017 MERCEDES BIANCHI MD Ot I25.5 ISCHEMIC CARDIOMYOPATHY 10/22/2017 MERCEDES BIANCHI MD Ot I48.0 PAROXYSMAL ATRIAL FIBRILLATION 10/22/2017 MERCEDES BIANCHI MD Ot Z79.82 USP (CURRENT) USE OF ASPIRIN 10/22/2017 MERCEDES BIANCHI MD Ot Z79.899 OTHER USP (CURRENT) DRUG THERAPY 10/22/2017 MERCEDES BIANCHI MD Ot Z95.1 PRESENCE OF AORTOCORONARY BYPASS GRAFT 10/23/2017 EMILY TUTTLE MD Ot 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, UNSPECI 10/23/2017 EMILY TUTTLE MD Ot E78.00 PURE HYPERCHOLESTEROLEMIA, UNSPECIFIED 10/23/2017 EMILY TUTTLE MD Ot I10 ESSENTIAL (PRIMARY) HYPERTENSION 10/23/2017 EMILY TUTTLE MD Ot I25.10 ATHSCL HEART DISEASE OF [place] CORONARY 10/23/2017 EMILY TUTTLE MD Ot I25.2 OLD MYOCARDIAL INFARCTION 10/23/2017 EMILY TUTTLE MD Ot K21.9 GASTRO-ESOPHAGEAL REFLUX DISEASE WITHOUT 10/23/2017 EMILY TUTTLE MD Ot Z87.891 PERSONAL HISTORY OF NICOTINE DEPENDENCE 10/23/2017 EMILY TUTTLE MD, Ot Z88.1 ALLERGY STATUS TO OTHER ANTIBIOTIC AGENT 10/23/2017 EMILY TUTTLE MD Ot Z95.1 PRESENCE OF AORTOCORONARY BYPASS GRAFT 10/23/2017 EMILY TUTTLE MD Ot Z95.5 PRESENCE OF CORONARY ANGIOPLASTY IMPLANT 10/25/2017 EMILY TUTTLE MD Ot 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, UNSPECI 10/25/2017 EMILY TUTTLE MD Ot R13.10 DYSPHAGIA, UNSPECIFIED 10/25/2017 EMILY TUTTLE MD Ot R63.4 ABNORMAL WEIGHT LOSS 10/25/2017 EMILY TUTTLE MD Ot Z53.29 PROC/TRTMT NOT CRD OUT BEC PT DECISION F 10/27/2017 MERCEDES BIANCHI MD Ot 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 10/27/2017 MERCEDES BIANCHI MD, Ot E78.5 HYPERLIPIDEMIA, UNSPECIFIED 10/27/2017 MERCEDES BIANCHI MD Ot I10 ESSENTIAL (PRIMARY) HYPERTENSION 10/27/2017 MERCEDES BIANCHI MD Ot I25.10 ATHSCL HEART DISEASE OF [place] CORONARY 10/27/2017 MERCEDES BIANCHI MD, Ot I25.5 ISCHEMIC CARDIOMYOPATHY 10/27/2017 MERCEDES BIANCHI MD Ot I48.0 PAROXYSMAL ATRIAL FIBRILLATION 10/27/2017 MERCEDES BIANCHI MD, Ot Z79.82 USP (CURRENT) USE OF ASPIRIN 10/27/2017 MERCEDES BIANCHI MD, Ot Z79.899 OTHER USP (CURRENT) DRUG THERAPY 10/27/2017 MERCEDES BIANCHI MD, Ot Z95.1 PRESENCE OF AORTOCORONARY BYPASS GRAFT 10/27/2017 EMILY TUTTLE MD Ot K22.8 OTHER SPECIFIED DISEASES OF ESOPHAGUS 11/10/2017 MERCEDES BIANCHI MD, Ot 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, UNSPECI 11/13/2017 Ot 278.00 OBESITY, NOS 11/13/2017 Ot 401.9 HYPERTENSION NOS 11/13/2017 Ot 414.00 CORON ATHEROSCLER NOS TYPE VESSEL, NATIV 11/13/2017 Ot 414.8 CHR ISCHEMIC HRT DIS NEC 11/13/2017 Ot V12.29 PERSONAL HX OF [facility] ENDOCRINE, METABOLIC 11/13/2017 SANDY MCKEE Ot E78.5 HYPERLIPIDEMIA, UNSPECIFIED 11/13/2017 SANDY MCKEE OPERATIONAL TEST MECHANIC Ot I25.10 ATHSCL HEART DISEASE OF [place] CORONARY 11/13/2017 VITO HUNTER FACC, ALI FACP CCDS Ot I10 ESSENTIAL (PRIMARY) HYPERTENSION 11/13/2017 VITO HUNTER FACC, ALI FACP CCDS Ot I25.10 ATHSCL HEART DISEASE OF [place] CORONARY 11/13/2017 VITO HUNTER FACC, ALI FACP CCDS Ot I25.5 ISCHEMIC CARDIOMYOPATHY 11/13/2017 VITO HUNTER FACC, ALI FACP CCDS Ot I65.23 OCCLUSION AND STENOSIS OF [place] 11/13/2017 VITO HUNTER FACC, ALI FACP CCDS Ot Z86.2 PRSNL HISTORY OF DIS OF THE BLD/BLD-FORM 11/13/2017 EMILY TUTTLE MD, Ot K22.8 OTHER SPECIFIED DISEASES OF ESOPHAGUS 11/13/2017 MERCEDES BIANCHI MD, Ot 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 11/13/2017 MERCEDES BIANCHI MD, Ot E78.5 HYPERLIPIDEMIA, UNSPECIFIED 11/13/2017 MERCEDES BIANCHI MD Ot I10 ESSENTIAL (PRIMARY) HYPERTENSION 11/13/2017 MERCEDES BIANCHI MD, Ot I25.10 ATHSCL HEART DISEASE OF [place] CORONARY 11/13/2017 MERCEDES BIANCHI MD, Ot I25.5 ISCHEMIC CARDIOMYOPATHY 11/13/2017 MERCEDES BIANCHI MD, Ot I48.0 PAROXYSMAL ATRIAL FIBRILLATION 11/13/2017 MERCEDES BIANCHI MD, Ot Z79.82 GRAVITY METER OBSERVER (CURRENT) USE OF ASPIRIN 11/13/2017 MERCEDES BIANCHI MD, Ot Z79.899 OTHER USP (CURRENT) DRUG THERAPY 11/13/2017 MERCEDES BIANCHI MD Ot Z95.1 PRESENCE OF AORTOCORONARY BYPASS GRAFT 11/13/2017 MERCEDES BIANCHI MD Ot 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, UNSPECI 11/13/2017 EMILY TUTTLE MD, Ot 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, UNSPECI 11/13/2017 EMILY TUTTLE MD Ot R13.10 DYSPHAGIA, UNSPECIFIED 11/13/2017 EMILY TUTTLE MD Ot R63.4 ABNORMAL WEIGHT LOSS 11/13/2017 EMILY TUTTLE MD, Ot Z53.29 PROC/TRTMT NOT CRD OUT BEC PT DECISION F 11/13/2017 Ot 278.00 OBESITY, NOS 11/13/2017 Ot 401.9 HYPERTENSION NOS 11/13/2017 Ot 414.00 CORON ATHEROSCLER NOS TYPE VESSEL, NATIV 11/13/2017 Ot 414.8 CHR ISCHEMIC HRT DIS NEC 11/13/2017 Ot V12.29 PERSONAL HX OF OTH ENDOCRINE, METABOLIC 11/13/2017 SANDY MCKEE Ot E78.5 HYPERLIPIDEMIA, UNSPECIFIED 11/13/2017 SANDY MCKEE Ot I25.10 ATHSCL HEART DISEASE OF [place] CORONARY 11/13/2017 VITO HUNTER FACC, JUAREZ WALKER CCDS Ot I10 ESSENTIAL (PRIMARY) HYPERTENSION 11/13/2017 VITO HUNTER FACFernanda, JUAREZ WALKER CCDS Ot I25.10 ATHSCL HEART DISEASE OF [place] CORONARY 11/13/2017 VITO HUNTER [facility], [facility] CCDS Ot I25.5 ISCHEMIC CARDIOMYOPATHY 11/13/2017 VITO HUNTER [facility] CCDS Ot I65.23 OCCLUSION AND STENOSIS OF [place] 11/13/2017 VITO HUNTER [facility], ALI FACP CCDS Ot Z86.2 PRSNL HISTORY OF DIS OF THE BLD/BLD-FORM 11/13/2017 EMILY TUTTLE MD, Ot K22.8 OTHER SPECIFIED DISEASES OF ESOPHAGUS 11/13/2017 MERCEDES BIANCHI MD, Ot 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 11/13/2017 MERCEDES BIANCIH MD Ot E78.5 HYPERLIPIDEMIA, UNSPECIFIED 11/13/2017 MERCEDES BIANCHI MD Ot I10 ESSENTIAL (PRIMARY) HYPERTENSION 11/13/2017 MERCEDES BIANCHI MD, Ot I25.10 ATHSCL HEART DISEASE OF [place] CORONARY 11/13/2017 MERCEDES BIANCHI MD, Ot I25.5 ISCHEMIC CARDIOMYOPATHY 11/13/2017 MERCEDES BIANCHI MD Ot I48.0 PAROXYSMAL ATRIAL FIBRILLATION 11/13/2017 MERCEDES BIANCHI MD Ot Z79.82 USP (CURRENT) USE OF ASPIRIN 11/13/2017 MERCEDES BIANCHI MD Ot Z79.899 OTHER USP (CURRENT) DRUG THERAPY 11/13/2017 MERCEDES BIANCHI MD Ot Z95.1 PRESENCE OF AORTOCORONARY BYPASS GRAFT 11/13/2017 MERCEDES BIANCHI MD Ot 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, UNSPECI 11/13/2017 EMILY TUTTLE MD, Ot 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, UNSPECI 11/13/2017 EMILY TUTTLE MD Ot R13.10 DYSPHAGIA, UNSPECIFIED 11/13/2017 EMILY TUTTLE MD Ot R63.4 ABNORMAL WEIGHT LOSS 11/13/2017 EMILY TUTTLE MD, Ot Z53.29 PROC/TRTMT NOT CRD OUT BEC PT DECISION F Procedures There is no data. Results Test [...] Status Pt. Type Provider Facility Loc./Unit Complaint [id number] 11/13/2017 08:15:00 11/13/2017 11:05:00 DIS Emergency NILSON SANCHEZ MD [facility] PT [id number] 10/22/2017 07:30:00 10/22/2017 11:40:00 DIS Outpatient EMILY TUTTLE MD [facility] ESOPHAGEAL CANCER [id number] 10/20/2017 13:00:00 10/20/2017 13:00:00 CAN Preadmit EMILY TUTTLE MD [facility] PREOP ESOPHAGEAL CANCER [id number] 10/16/2017 10:10:00 10/16/2017 23:59:59 CLS Outpatient EMILY TUTTLE MD [facility] ESOPHAGEAL CANCER [id number] 10/15/2017 05:34:00 10/15/2017 11:01:00 DIS Outpatient EMILY TUTTLE MD [facility] PREOP ESOPHAGEAL CANCER [id number] 09/30/2017 09:00:00 09/30/2017 23:59:59 CLS Outpatient MERCEDES BIANCHI MD [facility] RAD C15.9 ESOPHAGCAL CA [id number] 09/17/2017 14:32:00 09/17/2017 23:59:59 CLS Outpatient EMILY TUTTLE MD [facility] RAD ESOPHAGEAL MASS ON EGD [id number] 09/17/2017 10:20:00 09/17/2017 15:00:00 DIS Outpatient EMILY TUTTLE MD [facility] ENDO DYSPHAGIA [id number] 09/12/2017 05:35:00 09/12/2017 15:29:00 DIS Outpatient EMILY TUTTLE MD [facility] PREOP EGD [id number] 04/24/2017 07:21:00 04/24/2017 23:59:59 CLS Outpatient VITO HUNTER FACC, JUAREZ WALKER CCDS [facility] CARD CAD I25.10 [id number] 04/02/2016 09:11:00 04/02/2016 23:59:59 CLS Outpatient SANDY MCKEE [facility] LAB CAD,HLD [id number] 01/06/2014 08:35:00 01/06/2014 23:59:59 CLS Outpatient [id number] 10/21/2013 13:26:00 10/21/2013 18:42:00 DIS Outpatient MANUELITO SHERWOOD MD [facility] CATH DIFFICULTY BREATHING [id number] 04/05/2013 09:16:00 04/05/2013 11:36:00 DIS Emergency BLAINE CASTILLO SCRAPPER [facility] ER SPIDER BITE [id number] 11/13/2017 07:58:00 ACT Outpatient MERCEDES BIANCHI MD [facility] ONC [id number] 10/04/2014 13:44:00 Document Registration
== END 2017-11-13 11:05 | disposition home or self-care (01) ==
LOC: EDUNIT# 08:13 → ER 08:15
DX: C15.9 Malignant neoplasm of esophagus, unspecified (principal); I25.10 Atherosclerotic heart disease of native coronary artery without angina pectoris; I25.2 Old myocardial infarction; I10 Essential (primary) hypertension; Z86.19 Personal history of other infectious and parasitic diseases; Z87.442 Personal history of urinary calculi; Z88.5 Allergy status to narcotic agent; Z92.21 Personal history of antineoplastic chemotherapy; Z87.891 Personal history of nicotine dependence; Z95.5 Presence of coronary angioplasty implant and graft; Z95.1 Presence of aortocoronary bypass graft
CPT/HCPCS: 36415; 74177; 80053; 83690; 83735; 84484; 85025; 93005; 96361; 96374; 96375

== ENCOUNTER 2017-11-14 07:57 | Outpatient (RCR) | payer MEDICARE, OTHER ==
[2017-10-14 16:12] LABS: BASOPHILS % (AUTO) 0 % (0-10); EOSINOPHILS # (AUTO) 0.1 10^3/uL (0.0-0.3); EOSINOPHILS % (AUTO) 1 % (0-10); HEMATOCRIT 41 % (40-54); HEMOGLOBIN 14.2 G/DL (13.3-17.7); LYMPHOCYTES # (AUTO) 2.8 X 10^3 (1.0-4.0); LYMPHOCYTES % (AUTO) 30 % (12-44); MEAN CORPUSCULAR HEMOGLOBIN 30 PG (25-34); MEAN CORPUSCULAR HGB CONC 34 G/DL (32-36); MEAN CORPUSCULAR VOLUME 88 FL (80-99); MEAN PLATELET VOLUME 9.8 FL (7.4-10.4); MONOCYTES % (AUTO) 11 % (0-12); NEUTROPHILS # (AUTO) 5.4 X 10^3 (1.8-7.8); NEUTROPHILS % (AUTO) 58 % (42-75); PLATELET COUNT 290 10^3/uL (130-400); RED BLOOD COUNT 4.69 10^6/uL (4.35-5.85); RED CELL DISTRIBUTION WIDTH 14.3 % (10.0-14.5); WHITE BLOOD COUNT 9.4 10^3/uL (4.3-11.0)
[2017-10-14 16:32] LABS: ALANINE AMINOTRANSFERASE 18 U/L (0-55); ALBUMIN 3.7 GM/DL (3.2-4.5); ALKALINE PHOSPHATASE 95 U/L (40-136); BILIRUBIN,TOTAL 0.7 MG/DL (0.1-1.0); BUN/CREATININE RATIO 22; CALCIUM 9.5 MG/DL (8.5-10.1); CARBON DIOXIDE 30 MMOL/L (21-32); CHLORIDE 104 MMOL/L (98-107); CREATININE SERUM 0.83 MG/DL (0.60-1.30); GFR ESTIMATED > 60; GLUCOSE 100 MG/DL (70-105); MAGNESIUM 1.9 MG/DL (1.8-2.4); POTASSIUM 4.1 MMOL/L (3.6-5.0); SODIUM 142 MMOL/L (135-145); TOTAL PROTEIN 6.9 GM/DL (6.4-8.2)
[2017-10-27 12:49] LABS: BASOPHILS % (AUTO) 0 % (0-10); EOSINOPHILS % (AUTO) 0 % (0-10); HEMATOCRIT 40 % (40-54); HEMOGLOBIN 13.7 G/DL (13.3-17.7); LYMPHOCYTES % (AUTO) 9 % (12-44); MEAN CORPUSCULAR HEMOGLOBIN 30 PG (25-34); MEAN CORPUSCULAR HGB CONC 34 G/DL (32-36); MEAN CORPUSCULAR VOLUME 88 FL (80-99); MEAN PLATELET VOLUME 9.3 FL (7.4-10.4); MONOCYTES # (AUTO) 0.1 X 10^3 (0.0-1.0); MONOCYTES % (AUTO) 1 % (0-12); NEUTROPHILS # (AUTO) 10.3 X 10^3 (1.8-7.8); NEUTROPHILS % (AUTO) 90 % (42-75); PLATELET COUNT 303 10^3/uL (130-400); RED BLOOD COUNT 4.57 10^6/uL (4.35-5.85); RED CELL DISTRIBUTION WIDTH 14.1 % (10.0-14.5); WHITE BLOOD COUNT 11.4 10^3/uL (4.3-11.0)
[2017-10-27 13:19] LABS: BUN/CREATININE RATIO 29; CALCIUM 9.7 MG/DL (8.5-10.1); CARBON DIOXIDE 23 MMOL/L (21-32); CHLORIDE 105 MMOL/L (98-107); CREATININE SERUM 0.94 MG/DL (0.60-1.30); GFR ESTIMATED > 60; GLUCOSE 140 MG/DL (70-105); SODIUM 138 MMOL/L (135-145)
[2017-11-03 09:20] LABS: HEMOGLOBIN 12.9 G/DL (13.3-17.7); RED BLOOD COUNT 4.29 10^6/uL (4.35-5.85); WHITE BLOOD COUNT 4.5 10^3/uL (4.3-11.0)
[2017-11-03 09:21] LABS: BASOPHILS % (AUTO) 1 % (0-10); EOSINOPHILS % (AUTO) 0 % (0-10); HEMATOCRIT 38 % (40-54); LYMPHOCYTES # (AUTO) 0.4 X 10^3 (1.0-4.0); LYMPHOCYTES % (AUTO) 8 % (12-44); MEAN CORPUSCULAR HEMOGLOBIN 30 PG (25-34); MEAN CORPUSCULAR HGB CONC 34 G/DL (32-36); MEAN CORPUSCULAR VOLUME 87 FL (80-99); MEAN PLATELET VOLUME 10.2 FL (7.4-10.4); MONOCYTES % (AUTO) 1 % (0-12); NEUTROPHILS # (AUTO) 4.1 X 10^3 (1.8-7.8); NEUTROPHILS % (AUTO) 91 % (42-75); PLATELET COUNT 239 10^3/uL (130-400); RED CELL DISTRIBUTION WIDTH 13.6 % (10.0-14.5)
[2017-11-03 09:35] LABS: BUN/CREATININE RATIO 37; CALCIUM 9.2 MG/DL (8.5-10.1); CARBON DIOXIDE 25 MMOL/L (21-32); CHLORIDE 106 MMOL/L (98-107); CREATININE SERUM 0.76 MG/DL (0.60-1.30); GFR ESTIMATED > 60; GLUCOSE 160 MG/DL (70-105); POTASSIUM 4.3 MMOL/L (3.6-5.0); SODIUM 136 MMOL/L (135-145)
[2017-11-10 08:57] LABS: BASOPHILS % (AUTO) 1 % (0-10); EOSINOPHILS % (AUTO) 0 % (0-10); HEMATOCRIT 39 % (40-54); HEMOGLOBIN 13.4 G/DL (13.3-17.7); LYMPHOCYTES # (AUTO) 0.3 X 10^3 (1.0-4.0); LYMPHOCYTES % (AUTO) 16 % (12-44); MEAN CORPUSCULAR HEMOGLOBIN 30 PG (25-34); MEAN CORPUSCULAR HGB CONC 35 G/DL (32-36); MEAN CORPUSCULAR VOLUME 87 FL (80-99); MEAN PLATELET VOLUME 9.9 FL (7.4-10.4); MONOCYTES # (AUTO) 0.1 X 10^3 (0.0-1.0); MONOCYTES % (AUTO) 7 % (0-12); NEUTROPHILS # (AUTO) 1.2 X 10^3 (1.8-7.8); NEUTROPHILS % (AUTO) 77 % (42-75); PLATELET COUNT 233 10^3/uL (130-400); RED BLOOD COUNT 4.45 10^6/uL (4.35-5.85); RED CELL DISTRIBUTION WIDTH 13.3 % (10.0-14.5); WHITE BLOOD COUNT 1.5 10^3/uL (4.3-11.0)
[2017-11-10 09:22] LABS: BUN/CREATININE RATIO 34; CALCIUM 9.2 MG/DL (8.5-10.1); CARBON DIOXIDE 20 MMOL/L (21-32); CHLORIDE 104 MMOL/L (98-107); CREATININE SERUM 0.85 MG/DL (0.60-1.30); GFR ESTIMATED > 60; GLUCOSE 164 MG/DL (70-105); POTASSIUM 4.1 MMOL/L (3.6-5.0); SODIUM 137 MMOL/L (135-145)
[~2017-11-14] VITALS: Ht 180.3 cm; Wt 92.5 kg
[~2017-11-14 07:57] MED LIST changes: +CARBOPLATIN 300 MG in D5W 50 ML IV(CANCER CTR) 50 ML IV SCH; +FAMOTIDINE 20MG/2ML IV (CANCER CTR) IV SCH; +FOSAPREPITANT DIMEGLUMINE 150 MG in NS (IVPB) CANCER CENTER ONLY 150 ML IV SCH; +NORMAL SALINE IV SCH; +NS IV 1000 ML (CANCER CTR) IV SCH; +OXYC-197 PO; +PACLITAXEL IV SCH; +PALONOSETRON 0.25 MG, DEXAMETHASONE 10 MG/NS 50 ML IVPB IV PRN; +diphenhydrAMINE 25 MG TAB (BENADRYL) CANCER CENTER PO SCH; +diphenhydrAMINE 50 MG/ML INJ (CANCER CENTER) IV PRN
[2017-11-15] MEDS ORDERED: ONDA8TAB13 PO (21:40)
[2017-11-15] MEDS ORDERED: FENT1PAT57 TD (23:01)
== END 2017-12-25 | disposition home or self-care (01) ==
LOC: ONC 07:57
PROVIDERS: ATTEND Internal Medicine Hematology & Oncology
DX: Z51.0 Encounter for antineoplastic radiation therapy (principal); Z51.11 Encounter for antineoplastic chemotherapy; C15.5 Malignant neoplasm of lower third of esophagus; I25.10 Atherosclerotic heart disease of native coronary artery without angina pectoris; I25.5 Ischemic cardiomyopathy; I10 Essential (primary) hypertension; E78.5 Hyperlipidemia, unspecified; I48.0 Paroxysmal atrial fibrillation; Z95.1 Presence of aortocoronary bypass graft; Z79.82 Long term (current) use of aspirin; Z79.899 Other long term (current) drug therapy
CPT/HCPCS: 36415; 36591; 77300; 77301; 77332; 77334; 77336; 77338; 77386; 77470; 80048; 80053; 83735; 85025; 96360; 96361; 96367; 96375; 96413; 96417; 99204; 99213; 99214

== ENCOUNTER 2017-11-15 20:18 | Emergency (ER) | payer MEDICARE, OTHER ==
[~2017-11-15] VITALS: Ht 180.3 cm; Wt 77.1 kg
[~2017-11-15 20:18] MED LIST changes: -CARBOPLATIN 300 MG in D5W 50 ML IV(CANCER CTR) 50 ML IV SCH; -FAMOTIDINE 20MG/2ML IV (CANCER CTR) IV SCH; -FOSAPREPITANT DIMEGLUMINE 150 MG in NS (IVPB) CANCER CENTER ONLY 150 ML IV SCH; -NORMAL SALINE IV SCH; -NS IV 1000 ML (CANCER CTR) IV SCH; -PACLITAXEL IV SCH; -PALONOSETRON 0.25 MG, DEXAMETHASONE 10 MG/NS 50 ML IVPB IV PRN; -diphenhydrAMINE 25 MG TAB (BENADRYL) CANCER CENTER PO SCH; -diphenhydrAMINE 50 MG/ML INJ (CANCER CENTER) IV PRN
[2017-11-15] MEDS ORDERED: LACTATED RINGERS 1,000 ML IV SCH (20:30)
[2017-11-15] MEDS ORDERED: PROMETHAZINE INJ 25 MG/ML (PHENERGAN) AMP IVP ONE (20:30)
[2017-11-15] MEDS ORDERED: fentaNYL INJECTION 100 MCG/2 ML AMP IVP ONE (20:30)
[2017-11-15 20:31] LABS: BASOPHILS % (AUTO) 0 % (0-10); EOSINOPHILS % (AUTO) 0 % (0-10); HEMATOCRIT 39 % (40-54); HEMOGLOBIN 13.7 G/DL (13.3-17.7); LYMPHOCYTES # (AUTO) 0.3 X 10^3 (1.0-4.0); LYMPHOCYTES % (AUTO) 14 % (12-44); MEAN CORPUSCULAR HEMOGLOBIN 30 PG (25-34); MEAN CORPUSCULAR HGB CONC 35 G/DL (32-36); MEAN CORPUSCULAR VOLUME 84 FL (80-99); MEAN PLATELET VOLUME 9.9 FL (7.4-10.4); MONOCYTES # (AUTO) 0.2 X 10^3 (0.0-1.0); MONOCYTES % (AUTO) 8 % (0-12); NEUTROPHILS % (AUTO) 78 % (42-75); PLATELET COUNT 199 10^3/uL (130-400); RED BLOOD COUNT 4.63 10^6/uL (4.35-5.85); RED CELL DISTRIBUTION WIDTH 13.5 % (10.0-14.5); WHITE BLOOD COUNT 2.5 10^3/uL (4.3-11.0)
[2017-11-15 20:32] LABS: ABG BASE EXCESS -8.7 MMOL/L (-2.5-2.5); ABG OXYGEN SATURATION 100 % (94-100); ABG PO2 106 MMHG (79-93); ABG TCO2 12.5 MMOL/L (21.0-31.0)
--- NOTE | 2017-11-15 20:32 | ED GI ---
General Chief Complaint: Abdominal/GI Problems Stated Complaint: VOMITING Source of Information: Patient Exam Limitations: No Limitations History of Present Illness Date Seen by Provider: Nov 15, 2017 Time Seen by Provider: 20:27 Initial Comments To ER by his by private vehicle from home with reports of nausea and vomiting, inability to swallow eat or drink anything for 5 days. He currently is being treated for esophageal cancer with radiation/chemo with Dr. Goins, Dr. Alvarado, and primary care is Dr. Ramsey Holly. His last radiation was Tuesday 11/14 with 14 more treatments scheduled and chemo was 11/10 with 3 more doses scheduled according to . His nausea became very intense today. He states that he's been vomiting and now his chest hurts, he did vomit some blood. Also has a history of CABG Timing/Duration: 1-2 Days Severity/Quality: Moderate Location: Epigastric, Generalized Abdomen Associated Symptoms: Nausea/Vomiting Allergies and Home Medications Allergies Coded Allergies: meperidine HCl (Verified Allergy, Unknown, Has received Fentanyl in the past w/o issue, 10/22/17) Home Medications Amlodipine Besylate 10 Mg Tablet, 10 MG PO DAILY, (Reported) Aspirin 81 Mg Tablet.dr, 81 MG PO DAILY, (Reported) Atorvastatin Calcium 40 Mg Tablet, 40 MG PO DAILY, (Reported) Clopidogrel Bisulfate 75 Mg Tablet, 75 MG PO DAILY, (Reported) Fentanyl 1 Each Patch.td72, 25 MCG TD Q72H Prescribed by: BLAINE CASTILLO on 11/15/17 2301 Ondansetron 8 Mg Tab.rapdis, 8 MG PO Q4H PRN for NAUSEA/VOMITING-1ST LINE, ( Reported) Pantoprazole Sodium 40 Mg Tablet.dr, 40 MG PO DAILY, (Reported) Patient Home Medication List Home Medication List Reviewed: Yes Review of Systems Constitutional: see HPI EENTM: No Symptoms Reported Respiratory: No Symptoms Reported Cardiovascular: See HPI, Chest Pain Gastrointestinal: See HPI, Abdominal Pain, Nausea Genitourinary: No Symptoms Reported Musculoskeletal: no symptoms reported Skin: no symptoms reported Psychiatric/Neurological: No Symptoms Reported Endocrine: No Symptoms Reported Past Purtyue-Aqvtht-Pnhpsr Hx Patient Social History Type Used: Cigarettes Former Smoker, Quit: Sep 12, 1983 Recent Hopitalizations: No Seasonal Allergies Seasonal Allergies: No Past Medical History Surgeries: Yes CABG, Coronary Stent Respiratory: No Cardiac: Yes (cabg x1) Coronary Artery Disease, Heart Attack, Hypertension Neurological: No Genitourinary: Yes Kidney Stones Gastrointestinal: Yes (nausea, wt loss, difficulty swallowing) Musculoskeletal: No Endocrine: No Loss of Vision: Right Cancer: Yes Esophageal Psychosocial: No Integumentary: Yes (hx of SHINGLES) Blood Disorders: No Physical Exam Vital Signs Vital Signs - First Documented 11/15/17 20:18 Temp 97.7 Pulse 86 Resp 26 B/P (MAP) 123/83 (96) Pulse Ox 99 O2 Delivery Room Air Capillary Refill : General Appearance: WD/WN, moderate distress (Tachypneic, tearful. Difficult to tell whether the tachypnea is from anxiety or if these represent [place] respirations) HEENT: PERRL/EOMI, normal ENT inspection Neck: non-tender, full range of motion Respiratory: no respiratory distress, no accessory muscle use Cardiovascular: no murmur, tachycardia Gastrointestinal: normal bowel sounds, non tender, soft, other (He does not have a PEG tube. He states "that's a long story, we'll skip over that") Extremities: normal range of motion, non-tender Neurologic/Psychiatric: alert, normal mood/affect, oriented x 3 Skin: normal color, warm/dry Focused Exam Lactate Level 11/15/17 21:00: Lactic Acid Level 3.81*H 11/15/17 22:22: Lactic Acid Level 1.43 Lactic Acid Level Laboratory Tests Test 11/15/17 21:00 11/15/17 22:22 Lactic Acid Level 3.81 MMOL/L (0.50-2.00) *H 1.43 MMOL/L (0.50-2.00) Progress/Results/Core Measures Lab Results Laboratory Tests Test 11/15/17 20:23 11/15/17 21:00 11/15/17 22:17 11/15/17 22:22 Range/Units White Blood Count 2.5 L 4.3-11.0 10^3/uL Red Blood Count 4.63 4.35-5.85 10^6/uL Hemoglobin 13.7 13.3-17.7 G/DL Hematocrit 39 L 40-54 % Mean Corpuscular Volume 84 80-99 FL Mean Corpuscular Hemoglobin 30 25-34 PG Mean Corpuscular Hemoglobin Concent 35 32-36 G/DL Red Cell Distribution Width 13.5 10.0-14.5 % Platelet Count 199 130-400 10^3/uL Mean Platelet Volume 9.9 7.4-10.4 FL Neutrophils (%) (Auto) 78 H 42-75 % Lymphocytes (%) (Auto) 14 12-44 % Monocytes (%) (Auto) 8 0-12 % Eosinophils (%) (Auto) 0 0-10 % Basophils (%) (Auto) 0 0-10 % Neutrophils # (Auto) 2.0 1.8-7.8 X 10^3 Lymphocytes # (Auto) 0.3 L 1.0-4.0 X 10^3 Monocytes # (Auto) 0.2 0.0-1.0 X 10^3 Eosinophils # (Auto) 0.0 0.0-0.3 10^3/uL Basophils # (Auto) 0.0 0.0-0.1 10^3/uL Blood Gas Puncture Site RIGHT RADIAL RIGHT RADIAL Blood Gas Patient Temperature 97.7 98.0 Arterial Blood pH 7.69 *H 7.48 H 7.37-7.43 Arterial Blood Partial Pressure CO2 10 *L 28 L 35-45 MMHG Arterial Blood Partial Pressure O2 106 H 84 79-93 MMHG Arterial Blood HCO3 12 *L 21 L 23-27 MMOL/L Arterial Blood Total CO2 12.5 L 21.4 21.0-31.0 MMOL/L Arterial Blood Oxygen Saturation 100 98 94-100 % Arterial Blood Base Excess -8.7 L -2.5 -2.5-2.5 MMOL/L Bharathi Test POSITIVE POSITIVE Blood Gas Ventilator Setting NO NO Blood Gas Inspired Oxygen ROOM AIR ROOM AIR Sodium Level 139 135-145 MMOL/L Potassium Level 3.8 3.6-5.0 MMOL/L Chloride Level 103 98-107 MMOL/L Carbon Dioxide Level 12 L 21-32 MMOL/L Anion Gap 24 H 5-14 MMOL/L Blood Urea Nitrogen 32 H 7-18 MG/DL Creatinine 0.85 0.60-1.30 MG/DL Estimat Glomerular Filtration Rate > 60 BUN/Creatinine Ratio 38 Glucose Level 118 H 70-105 MG/DL Calcium Level 9.2 8.5-10.1 MG/DL Total Bilirubin 1.0 0.1-1.0 MG/DL Aspartate Amino Transf (AST/SGOT) 20 5-34 U/L Alanine Aminotransferase (ALT/SGPT) 16 0-55 U/L Alkaline Phosphatase 64 40-136 U/L Troponin I < 0.30 <0.30 NG/ML Total Protein 6.3 L 6.4-8.2 GM/DL Albumin 3.6 3.2-4.5 GM/DL Lipase 11 8-78 U/L Lactic Acid Level 3.81 *H 1.43 0.50-2.00 MMOL/L My Orders Orders - BLAINE CASTILLO APRN Fentanyl Injection (Sublimaze Injection (11/15/17 20:30) Promethazine Injection (Phenergan Injec (11/15/17 20:30) Lactated Ringers (Lr 1000 Ml Iv Solution (11/15/17 20:30) Cbc With Automated Diff (11/15/17 20:24) Comprehensive Metabolic Panel (11/15/17 20:24) Blood Culture (11/15/17 20:24) Lactic Acid Analyzer (11/15/17 20:24) Troponin I (11/15/17 20:24) Ekg Tracing (11/15/17 20:24) Chest 1 View, Ap/Pa Only (11/15/17 20:24) Lipase (11/15/17 20:24) Lorazepam Injection (Ativan Injection) (11/15/17 20:45) Lactic Acid Analyzer (11/15/17 22:08) Arterial Blood Gas (11/15/17 22:18) Medications Given in ED Current Medications Medications Dose Ordered Sig/El Route Start Time Stop Time Status Last Admin Dose Admin Fentanyl Citrate 50 mcg ONCE ONCE IVP 11/15/17 20:30 11/15/17 20:31 DC 11/15/17 20:32 50 MCG Promethazine HCl 12.5 mg ONCE ONCE IVP 11/15/17 20:30 11/15/17 20:31 DC 11/15/17 20:32 12.5 MG Vital Signs/I&O 11/15/17 20:18 Temp 97.7 Pulse 86 Resp 26 B/P (MAP) 123/83 (96) Pulse Ox 99 O2 Delivery Room Air Departure Communication (Admissions) 2030-upon arrival to ER he is very tachypneic, tachycardic very anxious and tearful. his [place] was accessed, given 12.5 mg of Phenergan as he had just taken Zofran at home without relief, complains of pain all over. States he was prescribed oxycodone for pain control on Friday of this past week, the , however he tried to take it and it made him vomit so he is not taking anymore of it. 1 L lactated Ringer's is infusing as a bolus. is also very tearful and at the bedside. 2199- patient is sitting upright in bed breathing normally no distress. Heart rate in 70s, blood pressure 120s over 80s, oxygen saturation 99% on room air. He is requesting some ice chips to suck on and is swallowing his own secretions. He is not vomiting here. He appears much more calm than upon arrival. I did discuss his PEG tube with him. He states that he was scheduled to have this done here but had a bad experience and before surgery was ever started he canceled that plan. He states "if I screwed the pooch then so be it" . He states that he is scheduled with Dr. Spence at the [facility] for a final consultation in December prior to surgical resection of this cancerous mass in the distal esophagus with possible placement of percutaneous feeding tube. However, he is unable to swallow more than his own saliva or ice chips so I'm concerned he'll need to have this PEG tube placed or jejunostomy tube placed before December in order to maintain his caloric requirements and nutritional needs. I spoke with the triage nurse at the [facility] who will call back. 2211- spoke with Rodrick from the transfer center at the [facility]. His direct line is [phone]. He spoke with a couple members of different care teams at the [facility]. The ABG result and lactic acid were concerning to them. They do like to have this repeated with these results called back to Rodrick. I did update patient and his and 2 visitors at the bedside that [facility] had requested additional labs and we would await these results before forming a plan. 2250- I did call Rodrick with a repeat ABG and lactic result. He will relay this to the medical oncology team and call us back. 2255- spoke with the patient and his that he may go to [facility] if they could except for a more urgent placement of the PEG tube since the patient does not want this done here at [facility]. Patient states "nope, not tonight. Are we done?" Advised him of my concern that he is going to go home, continued to be unable to eat and drink and the right back here in the emergency room within a few days for the same troubles. He states "well that's my fear 2 but I'm not going to make a [address] trip". He refuses to have PEG tube placed here so I did not call the surgeon here. I will write him a prescription for fentanyl patches since he is unable to swallow his pain medication at home. Impression Primary Impression: Dysphagia Additional Impression: Esophageal cancer Disposition: HOME, SELF-CARE Condition: Improved Departure-Patient Inst. Decision time for Depature: 22:58 Referrals: RAMSEY HOLLY MD (PCP/Family) Primary Care Physician Patient Instructions: Dysphagia Add. Discharge Instructions: 1. Wear the patch as directed. Take this to any pharmacy tomorrow. Leave the patch in place for 72 hours and remove it then replace it with a new one. Since U will not allow me to transfer U to the [facility] for a possible more urgent placement of PEG tube so that she can maintain some nutrition and hydration, keep your appointment with physician's next week. All discharge instructions reviewed with patient and/or family. Voiced understanding. Scripts Fentanyl (Duragesic Patch 25MCG) 1 Each Patch.td72 25 MCG TD Q72H, #5 PATCH Prov: BLAINE CASTILLO APRN 11/15/17 BLAINE CASTILLO APRN Nov 15, 2017 20:32
[2017-11-15 20:34] LABS: ABG PCO2 10 MMHG (35-45); ABG PH 7.69 (7.37-7.43)
[2017-11-15 20:35] LABS: ALLENS TEST POSITIVE; INSPIRED O2 ROOM AIR; PATIENT TEMP 97.7; VENTILATOR NO
[2017-11-15] MEDS ORDERED: LORazepam INJ 2 MG/ML (ATIVAN) VIAL IVP ONE (20:45)
[2017-11-15 20:51] LABS: ALANINE AMINOTRANSFERASE 16 U/L (0-55); ALBUMIN 3.6 GM/DL (3.2-4.5); ALKALINE PHOSPHATASE 64 U/L (40-136); BUN/CREATININE RATIO 38; CALCIUM 9.2 MG/DL (8.5-10.1); CARBON DIOXIDE 12 MMOL/L (21-32); CHLORIDE 103 MMOL/L (98-107); CREATININE SERUM 0.85 MG/DL (0.60-1.30); GFR ESTIMATED > 60; GLUCOSE 118 MG/DL (70-105); LIPASE 11 U/L (8-78); POTASSIUM 3.8 MMOL/L (3.6-5.0); SODIUM 139 MMOL/L (135-145); TOTAL PROTEIN 6.3 GM/DL (6.4-8.2)
--- NOTE | 2017-11-15 21:08 | Diagnostic Imaging Report ---
INDICATION: Esophageal cancer, chest pain Portable chest 0856 PM There are postop changes from a median sternotomy. Heart size and pulmonary vascularity are normal. Lungs are clear. There are no effusions or pneumothoraces. IMPRESSION: Postsurgical changes in the chest. There are no acute abnormalities seen. Dictated by: Dictated on workstation # [id number]
[2017-11-15] MEDS ORDERED: ONDA8TAB13 PO (21:40)
[2017-11-15 22:25] LABS: ABG BASE EXCESS -2.5 MMOL/L (-2.5-2.5); ABG OXYGEN SATURATION 98 % (94-100); ABG PCO2 28 MMHG (35-45); ABG PH 7.48 (7.37-7.43); ABG PO2 84 MMHG (79-93); ABG TCO2 21.4 MMOL/L (21.0-31.0)
[2017-11-15 22:28] LABS: ALLENS TEST POSITIVE
[2017-11-15 22:29] LABS: INSPIRED O2 ROOM AIR; VENTILATOR NO
[2017-11-15] MEDS ORDERED: FENT1PAT57 TD (23:01)
[2017-11-15 23:05] VITALS: BP 114/71
--- OUTSIDE RECORDS SUMMARY | 2017-11-16 10:35 | XMS REPORT | Continuity of Care Document ---
Author Author [facility] Organization [facility] Address Unknown Phone Unavailable Care Team Providers Care Aerial Crop Duster Name Role Phone [employer] Unavailable Unavailable Problems Medications Allergies, Adverse Reactions, Alerts Immunizations Results Vital Signs Encounters Location Location Details Encounter Type Encounter Number Reason For Visit Attending Provider ADM Date DC Date Status Source O 09/30/2017 09/30/2017 Active [facility] [place] SERIES [id number] MUNIR DOUGLAS 10/15/20172017 Active [facility] Procedures Plan of Care Social History Assessment and Plan Family History Advance Directives Functional Status
--- OUTSIDE RECORDS SUMMARY | 2017-11-16 10:35 | XMS REPORT | Encounter Summary ---
Author Author [facility] Organization [facility] Address Unknown Phone Unavailable Care Team Providers Care Entertainment Reporter Name Role Phone Rodolfo Alvarado MD Unavailable Unavailable Sanam Roberts MD Unavailable Ramsey Reynolds MD PCP Rodolfo Alvarado MD 21 Unavailable Reason for Visit * Reason Comments Other Encounter Details Date Type Department Care Team Description 10/22/2017 Telephone [facility] Chan Carranza MD Other [facility] Exam [address] [place] [address] [place] [address] [phone] Social History Tobacco Use Types Packs/Day Years [...]
--- OUTSIDE RECORDS SUMMARY | 2017-11-16 10:35 | XMS REPORT | Encounter Summary ---
Author Author [facility] Organization [facility] Address Unknown Phone Unavailable Care Team Providers Care Resident Manager Name Role Phone PCP Unavailable Encounter Details Date Type Department Care Team Description 09/30/2017 Hospital [facility] Radiology [address] [place] [address] Social History Tobacco Use Types [...]
--- OUTSIDE RECORDS SUMMARY | 2017-11-16 10:35 | XMS REPORT | Encounter Summary ---
Author Author [facility] Organization [facility] Address Unknown Phone Unavailable Care Team Providers Care Inside Sales Assistant Name Role Phone Rodolfo Alvarado MD Unavailable Unavailable Sanam Roberts MD Unavailable Ramsey Reynolds MD PCP Rodolfo Alvarado MD 21 Unavailable Encounter Details Date Type Department Care Team Description 10/13/2017 Ancillary Rad Outpatient, Radiologist Diagnosis unknown Orders [address] [place] [address] Social History Tobacco Use Types Packs/Day Years [...]
--- OUTSIDE RECORDS SUMMARY | 2017-11-16 10:35 | XMS REPORT | Encounter Summary ---
Author Author [facility] Organization [facility] Address Unknown Phone Unavailable Care Team Providers Care Estimator Binding Name Role Phone Rodolfo Alvarado MD Unavailable Unavailable Sanam Roberts MD Unavailable Ramsey Reynolds MD PCP Rodolfo Alvarado MD 21 Unavailable Reason for Visit * Reason Comments Navigation Assessment Encounter Details Date Type Department Care Team Description 10/10/[address] [facility] Chan Carranza MD Navigation Assessment Cancer Center - Exam [address] [place] [address] [place] [address] [phone] Social History Tobacco Use Types Packs/Day Years Used Date Never Assessed Sex Assigned at Date Recorded Not on file as of this encounter Miscellaneous Notes * Telephone Encounter - Caron Mars RN - 10/10/2017 8:13 AM MEASUREMENT ANALYST Formatting of this note may be different from the original. Navigation Intake Assessment Document Patient Name: Ever Johns : 1950 Insurance: Medicare Appointment Info: Future Appointments Date Time Provider Department Center 10/15/2017 3:20 PM Chan Carranza MD [facility] Exam Diagnosis & Reason for Visit: Esophogeal cancer. CABG 4 years ago at [facility] Physician Info: Referring Physician: Dr. Alvarado Medical Oncology Contact Name & Number: [phone] [facility] Radiation Oncologist: Dr Cruz - initial consult planned for 10/10 Other: Dr Price Geophysical Prospecting Permit Agent [phone] Location of Films: PACS Location of Pathology: [...] Counseling: Not Applicable Nutrition: Scheduled to see silk trimmer at referring providers office. Have you recently [...]
--- OUTSIDE RECORDS SUMMARY | 2017-11-16 10:35 | XMS REPORT | Clinical Summary ---
Author Author [facility] Organization [facility] Address Unknown Phone Unavailable Care Team Providers Care Broadcast Systems Engineer Name Role Phone Rodolfo Alvarado MD Unavailable Unavailable Sanam Roberts MD Unavailable Ramsey Reynolds MD PCP Rodolfo Alvarado MD 21 Unavailable Source Comments Some departments are not documenting in the electronic medical record. If you do not see the information that you expected, contact Release of Information in the Health Information Management department at [phone] for further assistance in locating additional records.[facility] Allergies Active Allergy Reactions Severity Noted Date [...] Carranza MD Other 10/21/2017 Telephone Oncology Chan Carranza MD Surgery [...]
--- OUTSIDE RECORDS SUMMARY | 2017-11-16 10:35 | XMS REPORT | Encounter Summary ---
Author Author [facility] Organization [facility] Address Unknown Phone Unavailable Care Team Providers Care Physical Design Engineer Name Role Phone Rodolfo Alvarado MD [...] [place], Oncology jason Giles MD ca/[facility] [address] re/ref from [address] [place] [address] rocedures Phone: NEW PATIENT [phone] Encounter Details Date Type Department Care Team Description 10/15/2017 Office Visit [facility] Chan Carranza MD Malignant neoplasm of Cancer [facility] Exam [address] lower third of esophagus [address] [facility] [place] [address] [place] [address] [phone] Social History Tobacco Use Types Packs/Day Years [...] that he will begin chemotherapy down in [facility]. He denies nausea, vomiting, fever, chills. He [...] that he will begin chemotherapy down in [facility]. He denies nausea, vomiting, fever, chills. He [...]
--- OUTSIDE RECORDS SUMMARY | 2017-11-16 10:35 | XMS REPORT | Encounter Summary ---
Author Author [facility] Organization [facility] Address Unknown Phone Unavailable Care Team Providers Care Wax Molder Name Role Phone PCP Unavailable Encounter Details Date Type Department Care Team Description 09/17/2017 Hospital [facility] Radiology [address] [place] [address] Social History Tobacco Use Types [...]
--- OUTSIDE RECORDS SUMMARY | 2017-11-16 10:35 | XMS REPORT | Encounter Summary ---
Author Author [facility] Organization [facility] Address Unknown Phone Unavailable Care Team Providers Care Jitterbug Operator Name Role Phone Rodolfo Alvarado MD Unavailable Unavailable Sanam Roberts MD Unavailable Ramsey Reynolds MD PCP Rodolfo Alvarado MD 21 Unavailable Encounter Details Date Type Department Care Team Description 10/20/2017 Prep for Case [place] Operating Room Chan Carranza MD [address] [address] [address] [place] [address] [phone] Social History Tobacco Use Types Packs/Day Years Used Date Former Smoker Cigarettes 2 15 Quit: 10/03/1983 Smokeless Tobacco: Never Used Alcohol Use Drinks/Week oz/Week Comments No Sex Assigned at Date Recorded Not on file as of this encounter Plan of Treatment Not on fileas of this encounter Visit Diagnoses Not on filein this encounter
--- OUTSIDE RECORDS SUMMARY | 2017-11-16 10:35 | XMS REPORT | Encounter Summary ---
Author Author [facility] Organization [facility] Address Unknown Phone Unavailable Care Team Providers Care Crumb Packer Name Role Phone Rodolfo Alvarado MD Unavailable Unavailable Sanam Roberts MD Unavailable Ramsey Reynolds MD PCP Rodolfo Alvarado MD 21 Unavailable Reason for Visit * Reason Comments Surgery Encounter Details Date Type Department Care Team Description 10/21/2017 Telephone [facility] Chan Carranza MD Surgery [facility] Exam [address] [place] [address] [place] [address] [phone] Social History Tobacco Use Types Packs/Day Years [...] was "very confused." Pt states that the wash and greaser was supposed to place the j-tube yesterday [...]
--- OUTSIDE RECORDS SUMMARY | 2017-11-16 10:36 | XMS REPORT | Continuity of Care Document ---
Author Author [facility] Organization [facility] Address Unknown Phone Unavailable Allergies Active Description Code Type Severity Reaction Onset Reported/Identified Relationship to Patient Clinical Status Yes meperidine HCl [id number] Drug Allergy Unknown N/A 10/21/2013 Yes meperidine HCl [id number] Drug Allergy Unknown Has received Fe 10/22/2017 [...] HUNTER, MANUELITO Ot 414.01 CORONARY ATHEROSCLEROSIS OF [place] CORON 10/21/2013 MANUELITO SHERWOOD MD Ot 414.2 CHRONIC TOTAL OCCLUSION OF CORONARY [place]AM[place] 04/02/2016 Ot 278.00 OBESITY, NOS 04/02/2016 Ot 401.9 HYPERTENSION NOS 04/02/2016 Ot 414.00 CORON ATHEROSCLER NOS TYPE VESSEL, NATIV 04/02/2016 Ot 414.8 CHR ISCHEMIC HRT DIS NEC 04/02/2016 Ot V12.29 PERSONAL HX OF [facility] ENDOCRINE, METABOLIC 04/03/2016 SANDY MCKEE WORK DISTRIBUTOR Ot E78.5 HYPERLIPIDEMIA, UNSPECIFIED 04/03/2016 SANDY MCKEE WORK DISTRIBUTOR Ot I25.10 ATHSCL HEART DISEASE OF [place] CORONARY 04/24/2016 SANDY MCKEE L WORK DISTRIBUTOR Ot E78.5 HYPERLIPIDEMIA, UNSPECIFIED 04/24/2016 SANDY MCKEE WORK DISTRIBUTOR Ot I25.10 ATHSCL HEART DISEASE OF [place] CORONARY 04/24/2017 Ot 278.00 OBESITY, NOS 04/24/2017 Ot 401.9 HYPERTENSION NOS 04/24/2017 Ot 414.00 CORON ATHEROSCLER NOS TYPE VESSEL, NATIV 04/24/2017 Ot 414.8 CHR ISCHEMIC HRT DIS NEC 04/24/2017 Ot V12.29 PERSONAL HX OF OTH ENDOCRINE, METABOLIC 04/24/2017 SANDY MCKEE WORK DISTRIBUTOR Ot E78.5 HYPERLIPIDEMIA, UNSPECIFIED 04/24/2017 SANDY MCKEE WORK DISTRIBUTOR Ot I25.10 ATHSCL HEART DISEASE OF [place] CORONARY 04/30/2017 VITO HUNTER FACC, ALI FACP CCDS Ot I10 ESSENTIAL (PRIMARY) HYPERTENSION 04/30/2017 VITO HUNTER FACC, ALI FACP CCDS Ot I25.10 ATHSCL HEART DISEASE OF [place] CORONARY 04/30/2017 VITO HUNTER FACC, ALI FACP [...] CCDS Ot I25.10 ATHSCL HEART DISEASE OF [place] CORONARY 05/15/2017 VITO HUNTER FAC, ALI FACP CCDS Ot I25.5 ISCHEMIC CARDIOMYOPATHY 05/15/2017 VITO HUNTER FAC, ALI FACP CCDS Ot I65.23 OCCLUSION AND STENOSIS OF [place] 05/15/[address] [facility], ALI FACP CCDS Ot Z86.2 PRSNL HISTORY [...] OF OTH ENDOCRINE, METABOLIC 09/16/2017 SANDY MCKEE WORK DISTRIBUTOR Ot E78.5 HYPERLIPIDEMIA, UNSPECIFIED 09/16/2017 RYLEE SANDY Monica WORK DISTRIBUTOR Ot I25.10 ATHSCL HEART DISEASE OF [place] CORONARY 09/16/2017 VITO HUNTER FACC, ALI FACP CCDS Ot I10 ESSENTIAL (PRIMARY) HYPERTENSION 09/16/2017 VITO HUNTER FACC, ALI FACP CCDS Ot I25.10 ATHSCL HEART DISEASE OF [place] CORONARY 09/16/2017 VITO HUNTER FACC, ALI FACP [...] OT ENDOCRINE, METABOLIC 09/17/2017 RYLEE SANDY L WORK DISTRIBUTOR Ot E78.5 HYPERLIPIDEMIA, UNSPECIFIED 09/17/2017 RYLEE SANDY L WORK DISTRIBUTOR Ot I25.10 ATHSCL HEART DISEASE OF [place] CORONARY 09/17/2017 VITO HUNTER FACC, JUAREZ FACP CCDS Ot I10 ESSENTIAL (PRIMARY) HYPERTENSION 09/17/2017 VITO HUNTER FACC, ALI FACP CCDS Ot I25.10 ATHSCL HEART DISEASE OF [place] CORONARY 09/17/2017 VITO HUNTER FACC, ALI FACP [...] MD Ot I25.10 ATHSCL HEART DISEASE OF [place] CORONARY 09/17/2017 EMILY TUTTLE MD Ot I25.2 OLD MYOCARDIAL INFARCTION 09/17/2017 EMILY TUTTLE MD Ot K29.70 GASTRITIS, UNSPECIFIED, WITHOUT BLEEDING 09/17/2017 EMILY TUTTLE MD Ot Z79.82 IC ENGINEER (CURRENT) USE OF ASPIRIN 09/17/2017 EMILY TUTTLE MD Ot Z79.899 OTHER MCC (CURRENT) DRUG THERAPY 09/17/2017 EMILY TUTTLE MD [...] MD Ot I25.10 ATHSCL HEART DISEASE OF [place] CORONARY 09/23/2017 EMILY TUTTLE MD Ot I25.2 OLD MYOCARDIAL INFARCTION 09/23/2017 EMILY TUTTLE MD Ot K29.70 GASTRITIS, UNSPECIFIED, WITHOUT BLEEDING 09/23/2017 EMILY TUTTLE MD Ot Z79.82 MCC (CURRENT) USE OF ASPIRIN 09/23/2017 EMILY TUTTLE MD Ot Z79.899 OTHER MCC (CURRENT) DRUG THERAPY 09/23/2017 EMILY TUTTLE MD [...] MD Ot I25.10 ATHSCL HEART DISEASE OF [place] CORONARY 10/09/2017 MERCEDES BIANCHI MD Ot I25.5 ISCHEMIC CARDIOMYOPATHY 10/09/2017 MERCEDES BIANCHI MD Ot I48.0 PAROXYSMAL ATRIAL FIBRILLATION 10/09/2017 MERCEDES BIANCHI MD Ot Z79.82 MCC (CURRENT) USE OF ASPIRIN 10/09/2017 MERCEDES BIANCHI MD Ot Z79.899 OTHER MCC (CURRENT) DRUG THERAPY 10/09/2017 MERCEDES BIANCHI MD [...] MD Ot I25.10 ATHSCL HEART DISEASE OF [place] CORONARY 10/16/2017 EMILY TUTTLE MD Ot I25.2 OLD MYOCARDIAL INFARCTION 10/16/2017 EMILY TUTTLE MD Ot K29.70 GASTRITIS, UNSPECIFIED, WITHOUT BLEEDING 10/16/2017 EMILY TUTTLE MD Ot Z79.82 MCC (CURRENT) USE OF ASPIRIN 10/16/2017 EMILY TUTTLE MD Ot Z79.899 OTHER IC ENGINEER (CURRENT) DRUG THERAPY 10/16/2017 EMILY TUTTLE MD [...] MD, Ot I25.10 ATHSCL HEART DISEASE OF [place] CORONARY 10/21/2017 EMILY TUTTLE MD, Ot I25.2 OLD MYOCARDIAL INFARCTION 10/21/2017 EMILY TUTTLE MD, Ot K29.70 GASTRITIS, UNSPECIFIED, WITHOUT BLEEDING 10/21/2017 EMILY TUTTLE MD, Ot Z79.82 MCC (CURRENT) USE OF ASPIRIN 10/21/2017 EMILY TUTTLE MD, Ot Z79.899 OTHER MCC (CURRENT) DRUG THERAPY 10/21/2017 EMILY TUTTLE MD [...] MD Ot I25.10 ATHSCL HEART DISEASE OF [place] CORONARY 10/22/2017 MERCEDES BIANCHI MD Ot I25.5 ISCHEMIC CARDIOMYOPATHY 10/22/2017 MERCEDES BIANCHI MD Ot I48.0 PAROXYSMAL ATRIAL FIBRILLATION 10/22/2017 MERCEDES BIANCHI MD Ot Z79.82 MCC (CURRENT) USE OF ASPIRIN 10/22/2017 MERCEDES BIANCHI MD Ot Z79.899 OTHER IC ENGINEER (CURRENT) DRUG THERAPY 10/22/2017 MERCEDES BIANCHI MD Ot Z95.1 PRESENCE OF AORTOCORONARY BYPASS GRAFT 10/22/2017 EMILY TUTTLE MD Ot 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, UNSPECI 10/22/2017 EMILY TUTTLE MD Ot E78.00 PURE HYPERCHOLESTEROLEMIA, UNSPECIFIED 10/22/2017 EMILY TUTTLE MD Ot I10 ESSENTIAL (PRIMARY) HYPERTENSION 10/22/2017 EMILY TUTTLE MD Ot I25.10 ATHSCL HEART DISEASE OF [place] CORONARY 10/22/2017 EMILY TUTTLE MD Ot I25.2 [...] MD Ot I25.10 ATHSCL HEART DISEASE OF [place] CORONARY 10/22/2017 MERCEDES BIANCHI MD Ot I25.5 ISCHEMIC CARDIOMYOPATHY 10/22/2017 MERCEDES BIANCHI MD Ot I48.0 PAROXYSMAL ATRIAL FIBRILLATION 10/22/2017 MERCEDES BIANCHI MD Ot Z79.82 IC ENGINEER (CURRENT) USE OF ASPIRIN 10/22/2017 MERCEDES BIANCHI MD Ot Z79.899 OTHER IC ENGINEER (CURRENT) DRUG THERAPY 10/22/2017 MERCEDES BIANCHI MD Ot Z95.1 PRESENCE OF AORTOCORONARY BYPASS GRAFT 10/23/2017 EMILY TUTTLE MD Ot 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, UNSPECI 10/23/2017 EMILY TUTTLE MD Ot E78.00 PURE HYPERCHOLESTEROLEMIA, UNSPECIFIED 10/23/2017 EMILY TUTTLE MD Ot I10 ESSENTIAL (PRIMARY) HYPERTENSION 10/23/2017 EMILY TUTTLE MD Ot I25.10 ATHSCL HEART DISEASE OF [place] CORONARY 10/23/2017 EMILY TUTTLE MD Ot I25.2 [...] MD Ot I25.10 ATHSCL HEART DISEASE OF [place] CORONARY 10/27/2017 MERCEDES BIANCHI MD, Ot I25.5 ISCHEMIC CARDIOMYOPATHY 10/27/2017 MERCEDES BIANCHI MD Ot I48.0 PAROXYSMAL ATRIAL FIBRILLATION 10/27/2017 MERCEDES BIANCHI MD, Ot Z79.82 MCC (CURRENT) USE OF ASPIRIN 10/27/2017 MERCEDES BIANCHI MD, Ot Z79.899 OTHER MCC (CURRENT) DRUG THERAPY 10/27/2017 MERCEDES BIANCHI MD, [...] NEC 11/13/2017 Ot V12.29 PERSONAL HX OF [facility] ENDOCRINE, METABOLIC 11/13/2017 SANDY MCKEE Ot E78.5 HYPERLIPIDEMIA, UNSPECIFIED 11/13/2017 SANDY MCKEE WORK DISTRIBUTOR Ot I25.10 ATHSCL HEART DISEASE OF [place] CORONARY 11/13/2017 VITO HUNTER FACC, ALI FACP CCDS Ot I10 ESSENTIAL (PRIMARY) HYPERTENSION 11/13/2017 VITO HUNTER FACC, ALI FACP CCDS Ot I25.10 ATHSCL HEART DISEASE OF [place] CORONARY 11/13/2017 VITO HUNTER FACC, ALI FACP [...] MD, Ot I25.10 ATHSCL HEART DISEASE OF [place] CORONARY 11/13/2017 MERCEDES BIANCHI MD, Ot I25.5 ISCHEMIC CARDIOMYOPATHY 11/13/2017 MERCEDES BIANCHI MD, Ot I48.0 PAROXYSMAL ATRIAL FIBRILLATION 11/13/2017 MERCEDES BIANCHI MD, Ot Z79.82 IC ENGINEER (CURRENT) USE OF ASPIRIN 11/13/2017 MERCEDES BIANCHI MD, Ot Z79.899 OTHER IC ENGINEER (CURRENT) DRUG THERAPY 11/13/2017 MERCEDES BIANCHI MD [...] MCKEE Ot I25.10 ATHSCL HEART DISEASE OF [place] CORONARY 11/13/2017 VITO HUNTER FACC, JUAREZ WALKER CCDS Ot I10 ESSENTIAL (PRIMARY) HYPERTENSION 11/13/2017 VITO HUNTER FACFernanda, JUAREZ WALKER CCDS Ot I25.10 ATHSCL HEART DISEASE OF [place] CORONARY 11/13/[address] [facility] Ot I25.5 ISCHEMIC CARDIOMYOPATHY 11/13/2017 VITO HUNTER FAC, [facility] CCD[facility] Ot I65.23 OCCLUSION AND STENOSIS OF [place]AL [place] 11/13/[address] 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 11/13/2017 MERCEDES BIANCHI MD, Ot E78.5 HYPERLIPIDEMIA, UNSPECIFIED 11/13/2017 MERCEDES BIANCHI MD Ot I10 ESSENTIAL (PRIMARY) HYPERTENSION 11/13/2017 MERCEDES BIANCHI MD, Ot I25.10 ATHSCL HEART DISEASE OF [place] CORONARY 11/13/2017 MERCEDES BIANCHI MD, Ot I25.5 ISCHEMIC CARDIOMYOPATHY 11/13/2017 MERCEDES BIANCHI MD Ot I48.0 PAROXYSMAL ATRIAL FIBRILLATION 11/13/2017 MERCEDES BIANCHI MD Ot Z79.82 MCC (CURRENT) USE OF ASPIRIN 11/13/2017 MERCEDES BIANCHI MD Ot Z79.899 OTHER IC ENGINEER (CURRENT) DRUG THERAPY 11/13/2017 MERCEDES BIANCHI MD Ot Z95.1 PRESENCE OF AORTOCORONARY BYPASS GRAFT 11/13/2017 MERCEDES BIANCHI MD Ot 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, UNSPECI 11/13/2017 EMILY TUTTLE MD, Ot 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, UNSPECI 11/13/2017 EMILY TUTTLE MD Ot R13.10 DYSPHAGIA, UNSPECIFIED 11/13/2017 EMILY TUTTLE MD Ot R63.4 ABNORMAL WEIGHT LOSS 11/13/2017 EMILY TUTTLE MD Ot Z53.29 PROC/TRTMT NOT CRD OUT BEC PT DECISION F 11/14/2017 Ot 278.00 OBESITY, NOS 11/14/2017 Ot 401.9 HYPERTENSION NOS 11/14/2017 Ot 414.00 CORON ATHEROSCLER NOS TYPE VESSEL, NATIV 11/14/2017 Ot 414.8 CHR ISCHEMIC HRT DIS NEC 11/14/2017 Ot V12.29 PERSONAL HX OF OTH ENDOCRINE, METABOLIC 11/14/2017 SANDY MCKEE Ot E78.5 HYPERLIPIDEMIA, UNSPECIFIED 11/14/2017 SANDY MCKEE WORK DISTRIBUTOR Ot I25.10 ATHSCL HEART DISEASE OF [place] CORONARY 11/14/2017 VITO HUNTER FAC, ALI FACP CCDS Ot I10 ESSENTIAL (PRIMARY) HYPERTENSION 11/14/2017 VITO HUNTER FACC, ALI FACP CCDS Ot I25.10 ATHSCL HEART DISEASE OF [place] CORONARY 11/14/2017 VITO HUTNER FACFernanda, ALI FACP CCDS Ot I25.5 ISCHEMIC CARDIOMYOPATHY 11/14/2017 VITO HUNTER FACC, ALI FACP CCDS Ot I65.23 OCCLUSION AND STENOSIS OF [place] 11/14/2017 VITO HUNTER FACFernanda, ALI FACP CCDS Ot Z86.2 PRSNL HISTORY OF DIS OF THE BLD/BLD-FORM 11/14/2017 EMILY TUTTLE MD, Ot K22.8 OTHER SPECIFIED DISEASES OF [place] 11/14/2017 MERCEDES BIANCHI MD, Ot 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 11/14/2017 MERCEDES BIANCHI MD Ot E78.5 HYPERLIPIDEMIA, UNSPECIFIED 11/14/2017 MERCEDES BIANCHI MD Ot I10 ESSENTIAL (PRIMARY) HYPERTENSION 11/14/2017 MERCEDES BIANCHI MD Ot I25.10 ATHSCL HEART DISEASE OF [place] CORONARY 11/14/2017 MERCEDES BIANCHI MD, Ot I25.5 ISCHEMIC CARDIOMYOPATHY 11/14/2017 MERCEDES BIANCHI MD Ot I48.0 PAROXYSMAL ATRIAL FIBRILLATION 11/14/2017 MERCEDES BIANCHI MD Ot Z79.82 MCC (CURRENT) USE OF ASPIRIN 11/14/2017 MERCEDES BIANCHI MD, Ot Z79.899 OTHER MCC (CURRENT) DRUG THERAPY 11/14/2017 MERCEDES BIANCHI MD Ot Z95.1 PRESENCE OF AORTOCORONARY BYPASS GRAFT 11/14/2017 MERCEDES BIANCHI MD Ot 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, UNSPECI 11/14/2017 EMILY TUTTLE MD, Ot 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, UNSPECI 11/14/2017 EMILY TUTTLE MD, Ot R13.10 DYSPHAGIA, UNSPECIFIED 11/14/2017 EMILY TUTTLE MD, Ot R63.4 ABNORMAL WEIGHT LOSS 11/14/2017 EMILY TUTTLE MD, Ot Z53.29 PROC/TRTMT NOT [...] Status Pt. Type Provider Facility Loc./Unit Complaint [id number] 11/13/2017 08:15:00 11/13/2017 11:05:00 DIS Emergency NILSON SANCHEZ MD [facility] ER WEAK,CA PT [id number] 10/22/2017 07:30:00 10/22/2017 11:40:00 DIS Outpatient EMILY TUTTLE MD [facility] ESOPHAGEAL CANCER [id number] 10/20/2017 13:00:00 10/20/2017 13:00:00 CAN Preadmit EMILY TUTTLE MD [facility] PREOP ESOPHAGEAL CANCER [id number] 10/16/2017 10:10:00 10/16/2017 23:59:59 CLS Outpatient EMILY TUTTLE MD [facility] SDC ESOPHAGEAL CANCER [id number] 10/15/2017 05:34:00 10/15/2017 11:01:00 DIS Outpatient EMILY TUTTLE MD [facility] PREOP ESOPHAGEAL CANCER [id number] 09/30/2017 09:00:00 09/30/2017 23:59:59 CLS Outpatient MERCEDES BIANCHI MD [facility] RAD C15.9 ESOPHAGCAL CA [id number] 09/17/2017 14:32:00 09/17/2017 23:59:59 CLS Outpatient EMILY TUTTLE MD [facility] RAD ESOPHAGEAL MASS ON EGD [id number] 09/17/2017 10:20:00 09/17/2017 15:00:00 DIS Outpatient EMILY TUTTLE MD [facility] ENDO DYSPHAGIA [id number] 09/12/2017 05:35:00 09/12/2017 15:29:00 DIS Outpatient EMILY TUTTLE MD [facility] PREOP EGD [id number] 04/24/2017 07:21:00 04/24/2017 23:59:59 CLS Outpatient VITO HUNTER FACCJUAREZ FACP CCDS [facility] CARD CAD I25.10 [id number] 04/02/2016 09:11:00 04/02/2016 23:59:59 CLS Outpatient SANDY MCKEE [facility] LAB CAD,HLD [id number] 01/06/2014 08:35:00 01/06/2014 23:59:59 CLS Outpatient [id number] 10/21/2013 13:26:00 10/21/2013 18:42:00 DIS Outpatient MANUELITO SHERWOOD MD [facility] CATH DIFFICULTY BREATHING [id number] 04/05/2013 09:16:00 04/05/2013 11:36:00 DIS Emergency BLAINE CASTILLO APRN [facility] ER SPIDER BITE [id number] 11/14/2017 07:57:00 ACT Outpatient MERCEDES BIANCHI MD [facility] ONC [id number] 10/04/2014 13:44:00 Document Registration
== END 2017-11-15 23:05 | disposition home or self-care (01) ==
LOC: EDUNIT# 20:18 → ER 20:19
DX: R13.10 Dysphagia, unspecified (principal); C15.9 Malignant neoplasm of esophagus, unspecified; I10 Essential (primary) hypertension; I25.10 Atherosclerotic heart disease of native coronary artery without angina pectoris; I25.2 Old myocardial infarction; Z95.5 Presence of coronary angioplasty implant and graft; Z95.1 Presence of aortocoronary bypass graft; Z87.442 Personal history of urinary calculi; Z87.891 Personal history of nicotine dependence; Z87.2 Personal history of diseases of the skin and subcutaneous tissue; Z79.82 Long term (current) use of aspirin; Z88.5 Allergy status to narcotic agent
CPT/HCPCS: 36415; 36600; 71045; 80053; 82805; 83605; 83690; 84484; 85025; 87040; 93005; 96361; 96374; 96375